=== PATIENT | female | born 1975 | race Two or more races ===

== ENCOUNTER 2016-04-28 13:25 | Emergency (ER) | payer SELFPAY ==
[2016-04-28] MEDS ORDERED: Loratadine 10 MG Tab PO ONE (14:19)
[2016-04-28] MEDS ORDERED: Ondansetron 4 MG/2 ML SDV IVPUSH ONE (14:19)
[2016-04-28] MEDS ORDERED: LORazepam 2 MG/ML MDV IVPUSH ONE (14:19)
[2016-04-28] MEDS ORDERED: Sodium Chloride 0.9% 10 ML Syringe FLUSH PRN (14:19)
[2016-04-28] MEDS ORDERED: Sodium Chloride 0.9% 1,000 ML IV SCH (14:30)
--- NOTE | 2016-04-28 14:52 | EDM.PDOC ---
ED HPI Behavioral Health - General Chief Complaint: Drug or Alcohol Abuse Stated Complaint: DETOXING FROM METH/ NAUSEA Time Seen by Provider: 04/28/16 13:51 Source of Information: Reports: Patient, RN notes reviewed - History of Present Illness INITIAL COMMENTS - FREE TEXT/NARRATIVE: 40-year-old female comes in with symptoms of anxiety and itching. She states that she is coming off of using methamphetamine. She's been using it fairly regularly since last July and off and on for the last 23 years. SHe states that she quit using meth IV about 3 weeks ago and then quit smoking meth about 3 days ago. She has not slept well the last few nights. SHe feels anxious, jittery and also has a lot of itchiness especially of arms and legs. No chest pain or difficulty breathing. No fever or chills. No abdominal pain nausea or vomiting. She denies being diabetic and denies known history for hypertension, heart disease or diabetes. No history of other known medical problems. 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 Immunologic History: Reports: HIV - Infectious Disease History Infectious Disease History: Reports: HIV-Human immunodeficiency virus - Past Surgical History GI Surgical History: Reports: Cholecystectomy Female Surgical History: Reports: Tubal ligation Other Neurological Surgeries/Procedures: degenerative disc disease L3-4 Social & Family History - Family History Family Medical History: Noncontributory - Tobacco Use Smoking Status *Q: Current Every Day Smoker Years of Tobacco use: 20 Packs/Tins Daily: 0.1 Second Hand Smoke Exposure: Yes - Caffeine Use Caffeine Use: Reports: Soda - Alcohol Use Days Per Week of Alcohol Use: 0 - Recreational Drug Use Recreational Drug Use: Yes Drug Use in Last 12 Months: Yes Recreational Drug Type: Reports: Methamphetamine Recreational Drug Use Frequency: Daily Recreational Drug Last Use: t-3 ED ROS GENERAL - Review of Systems Review Of Systems: See Below Constitutional: Denies: fever, chills, diaphoresis HEENT: Denies: Sinus problem, Throat pain Respiratory: Reports: cough. Denies: shortness of breath, sputum Cardiovascular: Reports: Palpitations. Denies: Chest pain, Lightheadedness, Syncope GI/Abdominal: Denies: Abdominal pain, Nausea, Vomiting Musculoskeletal: Denies: joint pain Skin: Reports: pruritis Neurological: Reports: dizziness (mild). Denies: headache, weakness Psychiatric: Reports: Anxiety ED EXAM, BEHAVIORAL HEALTH - Physical Exam Exam: See Below General Appearance: alert, anxious (mild) Eye Exam: bilateral eye: PERRL Throat/Mouth: Normal inspection, Normal oropharynx Head: No: facial swelling Neck: supple, full range of motion Respiratory/Chest: no respiratory distress, lungs clear, normal breath sounds Cardiovascular: regular rate, rhythm Back Exam: No: CVA tenderness (L), CVA tenderness (R) Extremities: normal inspection. No: pedal edema, leg pain Neurological: alert, no motor/sensory deficits Skin Exam: Other (she does have scattered excoriations of her upper extremities , primarily bilateral forearms.) COURSE, BEHAVIORAL HEALTH COMP - Course Vital Signs: Last Vital Signs Temp 98.5 F 04/28/16 13:45 Pulse 96 04/28/16 13:45 Resp 18 04/28/16 13:45 BP 134/84 04/28/16 13:45 Pulse Ox 97 04/28/16 13:45 Orders, Labs, Meds: Active Orders 24 hr Category Date Time Status Peripheral IV Care [RC] . DIRECTED Care 04/28/16 14:19 Active Sodium Chloride 0.9% [Normal Saline] 1,000 ml Med 04/28/16 14:30 Active IV ONETIME Sodium Chloride 0.9% [Saline Flush] Med 04/28/16 14:19 Active 10 ml FLUSH ASDIRECTED PRN Peripheral IV Insertion Adult [OM.PC] Stat Oth 04/28/16 14:18 Ordered Medication Orders Sodium Chloride (Normal Saline) 1,000 mls @ 999 mls/hr IV ONETIME ISADORA Last Admin: 04/28/16 15:07 Dose: 999 mls/hr Sodium Chloride (Saline Flush) 10 ml FLUSH ASDIRECTED PRN PRN Reason: Keep Vein Open Last Admin: 04/28/16 15:08 Dose: 10 ml Laboratory Tests 04/28/16 04/28/16 Range/Units 15:00 15:00 WBC 3.63 L (3.98-10.04) K/mm3 RBC 4.26 (3.98-5.22) M/mm3 Hgb 13.9 (11.2-15.7) gm/L Hct 40.6 (34.1-44.9) % MCV 95.3 H (79.4-94.8) fl MCH 32.6 H (25.6-32.2) pg MCHC 34.2 (32.2-35.5) g/dl RDW Std Deviation 47.2 H (36.4-46.3) fL Plt Count 269 (182-369) K/mm3 MPV 10.0 (9.4-12.3) fl Neut % (Auto) 54.7 (34.0-71.1) % Lymph % (Auto) 29.5 (19.3-51.7) % [place] % (Auto) 10.5 (4.7-12.5) % Eos % (Auto) 4.7 (0.7-5.8) Baso % (Auto) 0.6 (0.1-1.2) % Neut # 1.99 (1.56-6.13) K/mm3 Lymph # 1.07 L (1.18-3.74) K/mm3 [place] # 0.38 H (0.24-0.36) K/mm3 Eos # 0.17 (0.04-0.36) K/mm3 Baso # 0.02 (0.01-0.08) K/mm3 Sodium 140 (136-145) mEq/L Potassium 4.2 (3.5-5.1) mEq/L Chloride 105 (98-107) mEq/L Carbon Dioxide 29 (21-32) mEq/L Anion Gap 10.2 (5-15) BUN 15 (7-18) mg/dL Creatinine 0.8 (0.55-1.02) mg/dL Est Cr Clr Drug Dosing 82.43 mL/min Estimated GFR (MDRD) > 60 (>60) mL/min BUN/Creatinine Ratio 18.8 H (14-18) Glucose 108 H (74-106) mg/dL Calcium 8.4 L (8.5-10.1) mg/dL Total Bilirubin 0.2 (0.2-1.0) mg/dL AST 18 (15-37) U/L ALT 45 (14-59) U/L Alkaline Phosphatase 88 (46-116) U/L Total Protein 7.3 (6.4-8.2) g/dl Albumin 3.1 L (3.4-5.0) g/dl Globulin 4.2 gm/dL Albumin/Globulin Ratio 0.7 L (1-2) Medications Generic Name Dose Route Start Last Admin Trade Name Freq PRN Reason Stop Dose Admin Sodium Chloride 1,000 mls @ 999 mls/hr 04/28/16 14:30 04/28/16 15:07 Normal Saline IV 999 mls/hr ONETIME ISADORA Administration Sodium Chloride 10 ml 04/28/16 14:19 04/28/16 15:08 Saline Flush FLUSH 10 ml ASDIRECTED PRN Administration Keep Vein Open Discontinued Medications Generic Name Dose Route Start Last Admin Trade Name Freq PRN Reason Stop Dose Admin Loratadine 10 mg 04/28/16 14:19 04/28/16 15:08 Claritin PO 04/28/16 14:20 10 mg ONETIME ONE Administration Lorazepam 1 mg 04/28/16 14:19 04/28/16 15:07 Ativan IVPUSH 04/28/16 14:20 1 mg ONETIME ONE Administration Ondansetron HCl 4 mg 04/28/16 14:19 04/28/16 15:07 Zofran IVPUSH 04/28/16 14:20 4 mg ONETIME ONE Administration Re-Assessment/Re-Exam: labs are good. Patient does feel less anxious and less itchy after Ativan 1 mg IV, 1 L of normal saline IV and Claritin 10 mg by mouth, discharge instructions as documented Departure - Departure Time of Disposition: 16:19 Disposition: Home, Self-Care 01 Condition: fair Clinical Impression: Anxiety, Pruritus Prescriptions: LORazepam [Ativan] 1 mg PO Q8H PRN #14 tablet PRN Reason: Anxiety Referrals: Anna Marie Silva, [employer] [Primary Care Provider] - Additional Instructions: rest, drink plenty of water, Ativan 1/2 mg or 1 mg every 8-12 hours as needed for palpitations, anxiety. Do not drive when taking these medications. Followup with your regular medical provider or [facility] as needed, return to ED as needed, and also consider [facility] if needed for any addiction- type counseling services. - My Orders Last 24 Hours: My Active Orders 04/28/16 14:18 Peripheral IV Insertion Adult [OM.PC] Stat 04/28/16 14:19 Peripheral IV Care [RC] . DIRECTED Sodium Chloride 0.9% [Saline Flush] 10 ml FLUSH ASDIRECTED PRN 04/28/16 14:30 Sodium Chloride 0.9% [Normal Saline] 1,000 ml IV ONETIME - Assessment/Plan Last 24 Hours: My Active Orders 04/28/16 14:18 Peripheral IV Insertion Adult [OM.PC] Stat 04/28/16 14:19 Peripheral IV Care [RC] . DIRECTED Sodium Chloride 0.9% [Saline Flush] 10 ml FLUSH ASDIRECTED PRN 04/28/16 14:30 Sodium Chloride 0.9% [Normal Saline] 1,000 ml IV ONETIME
[2016-04-28 16:38] VITALS: BP 119/77
== END 2016-04-28 16:34 | disposition home or self-care (01) ==
LOC: JD.ED 13:25
DX: F41.9 Anxiety disorder, unspecified (principal); L29.9 Pruritus, unspecified; B20 Human immunodeficiency virus [HIV] disease; F17.210 Nicotine dependence, cigarettes, uncomplicated; Z90.49 Acquired absence of other specified parts of digestive tract; Z88.0 Allergy status to penicillin
CPT/HCPCS: 36415; 80053; 85025; 96361; 96374; 96375; 99284; A9270; J2060; J2405; J7040; J7050

== ENCOUNTER 2016-11-16 18:54 | Emergency (ER) | payer OTHER ==
[2016-11-16 19:48] VITALS: BP 106/70
[2016-11-16] MEDS ORDERED: Sodium Chloride 0.9% 10 ML Syringe FLUSH PRN (19:52)
[2016-11-16] MEDS ORDERED: Sodium Chloride 0.9% 1,000 ML IV SCH (20:00)
[2016-11-16] MEDS ORDERED: Midazolam 1 MG/ML 2 ML SDV IVPUSH ONE (21:47)
--- NOTE | 2016-11-16 22:48 | EDM.PDOC ---
ED HPI GENERAL MEDICAL PROBLEM - General Chief Complaint: Possible Sepsis Stated Complaint: poss blood infection Time Seen by Provider: 11/16/16 19:33 Source of Information: Reports: Patient, Provider History Limitations: Reports: No Limitations - History of Present Illness INITIAL COMMENTS - FREE TEXT/NARRATIVE: The patient is HIV positive since 1996. She was on ART for many years but now she is off of it. She was non compliant. She sees an infectious disease specialist in [facility]. She left there on the 15 of November to come back here. She is on probation for a drug possession charge. She is trying to get probation back home in [place] where she cane be with her doctor and with her mom. Before she came back here her doctor ran some tests and her CD4 count was 11 and she was positive for cryptococcal antigen. She had headaches and he wanted her to come to the ER for basic labs, CT of her head and an LP. She denies any symptoms currently such as headache, fever, chills, cough, chest pain, shortness of breath, abdominal pain, nausea or vomiting. She has no numbness or weakness. She is currently on bactrim and azithromycin for prophylaxis. Onset: Gradual Duration: Day(s): Improves with: Reports: None Worsens with: Reports: None Associated Symptoms: Reports: No Other Symptoms - Related Data Allergies Allergy/AdvReac Type Severity Reaction Status Date / Time Penicillins Allergy Anaphylactic Verified 11/16/16 19:25 Shock Home Meds: Home Meds ALPRAZolam [Xanax] 1 mg PO PRN 11/16/16 [History] Albuterol Sulfate [Proair Hfa] 2 puff IH PRN 11/16/16 [History] Amitriptyline [Elavil] 50 mg PO BEDTIME 11/16/16 [History] Azithromycin 2 tab PO ASDIRECTED 11/16/16 [History] Cetirizine [ZyrTEC] 10 mg PO DAILY 11/16/16 [History] Escitalopram [Lexapro] 20 mg PO DAILY 11/16/16 [History] Hydrocodone/Acetaminophen [Vicodin 5-300 mg Tablet] 1 tab PO ASDIRECTED PRN [History] Levothyroxine [Synthroid] 50 mcg PO DAILY 11/16/16 [History] Nystatin 5 ml PO QID 11/16/16 [History] Pneumococcal 13-Valent Conjug [Prevnar 13] 0.5 ml IM ASDIRECTED 11/16/16 [ History] Sulfamethoxazole/Trimethoprim [Bactrim Ds Tablet] 1 each PO 11/16/16 [History] Triamcinolone Acetonide [Triamcinolone Acetonide 0.1% Crm] TOP DAILY 11/16/16 [ History] hydrOXYzine Pamoate [Hydroxyzine Pamoate] 100 mg PO TID 11/16/16 [History] Past Medical History - Past Health History Medical/Surgical History: Denies Medical/Surgical History [employer] 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: Musculoskeletal History: Reports: Back Pain, Chronic Neurological History: Reports: Headaches, Chronic Psychiatric History: Reports: Addiction, Anxiety, Depression, Other (See Below) Other Psychiatric History: 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 Endocrine/Metabolic History: Reports: Hypothyroidism Immunologic History: Reports: HIV Dermatologic History: Reports: Other (See Below) Other Dermatologic History: 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 - Infectious Disease History Infectious Disease History: Reports: HIV-Human Immunodeficiency Virus - Past Surgical History GI Surgical History: Reports: Cholecystectomy Female Surgical History: Reports: Tubal Ligation Other Neurological Surgeries/Procedures: degenerative disc disease L3-4 Social & Family History - Family History Family Medical History: Noncontributory - Tobacco Use Smoking Status *Q: Current Every Day Smoker Years of Tobacco use: 24 Packs/Tins Daily: 1 Tobacco Use Comment: down to 1 cigarette daily Second Hand Smoke Exposure: Yes - Caffeine Use Caffeine Use: Reports: Soda - Alcohol Use Days Per Week of Alcohol Use: 0 - Recreational Drug Use Recreational Drug Use: Yes Drug Use in Last 12 Months: No Recreational Drug Type: Reports: Methamphetamine Recreational Drug Use Frequency: Not Used In Over 6 Months Recreational Drug Last Use: t-3 ED ROS GENERAL - Review of Systems Review Of Systems: See Below Constitutional: Reports: No Symptoms HEENT: Reports: No Symptoms Respiratory: Reports: No Symptoms Cardiovascular: Reports: No Symptoms Endocrine: Reports: No Symptoms GI/Abdominal: Reports: No Symptoms : Reports: No Symptoms Musculoskeletal: Reports: No Symptoms Skin: Reports: No Symptoms Neurological: Reports: Headache (Days ago but none now) ED EXAM, SEPSIS - Physical Exam Exam: See Below Exam Limited By: No Limitations General Appearance: Alert, No Apparent Distress Ears: Normal External Exam Nose: Normal Inspection Head: Atraumatic, Normocephalic Neck: Normal Inspection Respiratory/Chest: No Respiratory Distress, Lungs Clear, Normal Breath Sounds Cardiovascular: Regular Rate, Rhythm, No Edema, No Murmur GI/Abdominal Exam: Soft, Non-Tender, No Organomegaly, No Mass Back: Normal Inspection Extremities: Normal Inspection Neurological: Alert, Oriented, No Motor/Sensory Deficits ED SEPSIS PROCEDURES - Lumbar Puncture Indication: Headache Consent Obtained: Patient Position: Left Prep: Sterile Drapes, Betadine Local Anesthesia - Lidocaine (Xylocaine): 1% Plain Vertebral Interspace: L4/L5 Spinal Needle with Stylet: 20ga, 3.5 Inch (Adult) Number of Attempts: 2 (Unsuccessful) Course - Vital Signs Last Recorded V/S: Last Vital Signs Temp 97.4 F 11/16/16 19:47 Pulse 87 11/16/16 19:47 Resp 18 11/16/16 19:47 BP 106/70 11/16/16 19:47 Pulse Ox 98 11/16/16 19:47 - Orders/Labs/Meds Orders: Active Orders 24 hr Category Date Time Status Flat in Bed [RC] ASDIRECTED Care 11/16/16 21:36 Active Peripheral IV Care [RC] . DIRECTED Care 11/16/16 19:54 Active Procedure Tray at Bedside [] ASDIRECTED Care 11/16/16 21:36 Active Verify Patient Consent Obtain [RC] ASDIRECTED Care 11/16/16 21:36 Active Head wo Cont [CT] Stat Exams 11/16/16 19:55 Taken CULTURE BLOOD [BC] Stat Lab 11/16/16 20:15 Received CULTURE BLOOD [BC] Stat Lab 11/16/16 20:25 Received Blood Culture x2 Reflex Set [OM.PC] Stat Oth 11/16/16 19:52 Ordered ED Lumbar Puncture Reflex [OM.PC] Click To Edit Oth 11/16/16 21:36 Ordered Peripheral IV Insertion Adult [OM.PC] Stat Oth 11/16/16 19:52 Ordered Labs: Laboratory Tests 11/16/16 11/16/16 Range/Units 20:15 20:15 WBC 3.86 L (3.98-10.04) K/mm3 RBC 3.76 L (3.98-5.22) M/mm3 Hgb 12.3 (11.2-15.7) gm/L Hct 36.2 (34.1-44.9) % MCV 96.3 H (79.4-94.8) fl MCH 32.7 H (25.6-32.2) pg MCHC 34.0 (32.2-35.5) g/dl RDW Std Deviation 47.3 H (36.4-46.3) fL Plt Count 255 (182-369) K/mm3 MPV 10.0 (9.4-12.3) fl Neut % (Auto) 50.7 (34.0-71.1) % Lymph % (Auto) 28.8 (19.3-51.7) % [place] % (Auto) 10.1 (4.7-12.5) % Eos % (Auto) 9.6 H (0.7-5.8) Baso % (Auto) 0.5 (0.1-1.2) % Neut # (Auto) 1.96 (1.56-6.13) K/mm3 Lymph # (Auto) 1.11 L (1.18-3.74) K/mm3 [place] # (Auto) 0.39 H (0.24-0.36) K/mm3 Eos # (Auto) 0.37 H (0.04-0.36) K/mm3 Baso # (Auto) 0.02 (0.01-0.08) K/mm3 Sodium 143 (136-145) mEq/L Potassium 4.0 (3.5-5.1) mEq/L Chloride 107 (98-107) mEq/L Carbon Dioxide 29 (21-32) mEq/L Anion Gap 11.0 (5-15) BUN 21 H (7-18) mg/dL Creatinine 1.1 H (0.55-1.02) mg/dL Est Cr Clr Drug Dosing TNP Estimated GFR (MDRD) 54 (>60) mL/min BUN/Creatinine Ratio 19.1 H (14-18) Glucose 113 H (74-106) mg/dL Calcium 8.5 (8.5-10.1) mg/dL Total Bilirubin 0.3 (0.2-1.0) mg/dL AST 39 H (15-37) U/L ALT 71 H (14-59) U/L Alkaline Phosphatase 99 (46-116) U/L Total Protein 7.4 (6.4-8.2) g/dl Albumin 3.3 L (3.4-5.0) g/dl Globulin 4.1 gm/dL Albumin/Globulin Ratio 0.8 L (1-2) Meds: Medications Discontinued Medications Generic Name Dose Route Start Last Admin Trade Name Shravanq PRN Reason Stop Dose Admin Sodium Chloride 1,000 mls @ 125 mls/hr 11/16/16 20:00 11/16/16 20:39 Normal Saline IV 125 mls/hr ASDIRECTED ISADORA Administration Midazolam HCl 2 mg 11/16/16 21:47 11/16/16 21:59 Versed 1 Mg/Ml IVPUSH 11/16/16 21:48 2 mg ONETIME ONE Administration Sodium Chloride 10 ml 11/16/16 19:52 11/16/16 20:41 Saline Flush FLUSH 10 ml ASDIRECTED PRN Administration Keep Vein Open - Re-Assessments/Exams Free Text/Narrative Re-Assessment/Exam: 11/17/16 01:53 I ordered an IV saline lock, CT of her head, labs and an LP. Her CT shows nothing acute. Her WBC was low at 3.86. Her Hgb was normal at 12.3. Her platelets were normal at 255. Her creatinine was elevated at 1.1. Her AST was elevated at 3.9. Her ALT was elevated at 71. I attempted to do the LP 2 times with no success. I set her up to get an LP by our WILL CALL ORDER CLERK's tomorrow at 9am. The patient will return and we will order the suggested studies. Departure - Departure Time of Disposition: 22:50 Disposition: Home, Self-Care 01 Condition: Good Clinical Impression: HIV (human immunodeficiency virus infection), Cryptosporidiosis with HIV infection Headache Qualifiers: Headache type: unspecified Headache chronicity pattern: episodic headache Intractability: not intractable Qualified Code(s): R51 - Headache - Discharge Information Instructions: Migraine Headache Referrals: Anna Marie Silva [employer] WORKER [Primary Care Provider] - Forms: ED Department Discharge Additional Instructions: Please return to the hospital tomorrow morning at 9am. Come to the front of the hospital. Our WILL CALL ORDER CLERK will do the lumbar puncture. Please return if you are worse. - My Orders Last 24 Hours: My Active Orders 11/16/16 19:52 Blood Culture x2 Reflex Set [OM.PC] Stat Peripheral IV Insertion Adult [OM.PC] Stat 11/16/16 19:54 Peripheral IV Care [RC] . DIRECTED 11/16/16 19:55 Head wo Cont [CT] Stat 11/16/16 20:15 CULTURE BLOOD [BC] Stat 11/16/16 20:25 CULTURE BLOOD [BC] Stat 11/16/16 21:36 Flat in Bed [RC] ASDIRECTED Procedure Tray at Bedside [RC] ASDIRECTED Verify Patient Consent Obtain [RC] ASDIRECTED ED Lumbar Puncture Reflex [OM.PC] Click To Edit - Assessment/Plan Last 24 Hours: My Active Orders 11/16/16 19:52 Blood Culture x2 Reflex Set [OM.PC] Stat Peripheral IV Insertion Adult [OM.PC] Stat 11/16/16 19:54 Peripheral IV Care [RC] . DIRECTED 11/16/16 19:55 Head wo Cont [CT] Stat 11/16/16 20:15 CULTURE BLOOD [BC] Stat 11/16/16 20:25 CULTURE BLOOD [BC] Stat 11/16/16 21:36 Flat in Bed [RC] ASDIRECTED Procedure Tray at Bedside [RC] ASDIRECTED Verify Patient Consent Obtain [RC] ASDIRECTED ED Lumbar Puncture Reflex [OM.PC] Click To Edit
--- NOTE | 2016-11-17 07:32 | CT ---
Head CT Technique: Multiple axial sections through the brain were obtained. Intravenous contrast was not utilized. Comparison: No prior intracranial imaging. Findings: Ventricles along with basal cisterns and sulci over the convexities are within normal limits for the patient's age. No abnormal parenchymal densities are seen. No evidence of intracranial hemorrhage. No midline shift or mass effect is seen. Bone window settings were reviewed which show no acute calvarial abnormality. Visualized sinuses are clear. Impression: 1. Nothing acute is identified on noncontrast head CT exam. Diagnostic code #1 Agree with preliminary report issued by [facility] ([facility] preliminary report dictated on 11/16/16, 10:17 PM Central Time)
== END 2016-11-16 22:55 | disposition home or self-care (01) ==
LOC: JD.ED 18:54
DX: R51 Headache (principal); A07.2 Cryptosporidiosis; B20 Human immunodeficiency virus [HIV] disease; F17.210 Nicotine dependence, cigarettes, uncomplicated; Z88.0 Allergy status to penicillin; Z79.899 Other long term (current) drug therapy
CPT/HCPCS: 36415; 62272; 70450; 80053; 85025; 87040; 96361; 96374; 99285; J2250; J7040; J7050; 62270; 99284-25

== ENCOUNTER 2016-11-25 00:48 | Emergency (ER) | payer OTHER ==
[2016-11-25] MEDS ORDERED: Sodium Chloride 0.9% 10 ML Syringe FLUSH PRN (01:39)
[2016-11-25] MEDS ORDERED: Sodium Chloride 0.9% 1,000 ML IV SCH (01:45)
--- NOTE | 2016-11-25 02:49 | EDM.PDOC ---
ED HPI GENERAL MEDICAL PROBLEM - General Chief Complaint: Respiratory Problem Stated Complaint: HEADACHE NAUSEA FEVER CHEST PAIN Time Seen by Provider: 11/25/16 01:19 Source of Information: Reports: Patient History Limitations: Reports: No Limitations - History of Present Illness INITIAL COMMENTS - FREE TEXT/NARRATIVE: The patient has HIV. Her last CD 4 count was 11. That was done a couple weeks ago in [facility]. She was also positive for cryptococcal antigen. Her infectious disease specialist lives there. That is where the patient is from. Her doctor before he left put her on some bactrim and azithromycin. She is not on antiretroviral therapy at this time. She did not tolerate it and was non compliant. The patient had to come back to [place]. She is on probation from a drug charge. Her doctor called her and told her to come to the ER last week and get a CT of her head, labs and an LP. Her CT was normal. Her labs look good. I attempted an LP a couple times and I was unsuccessful. I scheduled the patient to come back the next day to have our SAFETY BELT INSTALLER attempt the LP. She did not show up. She contacted her doctor and he started her on diflucan 800mg daily. She has been on that for a few days. She has been on bactrim, azithromycin and nystatin for a couple of weeks. For the past couple of days she has developed a headache, low back pain, chils, photophobia, right sided chest pain, shortness of breath with wheezing. She also has dizziness and decreased appetite. She has no abdominal pain, nausea or vomiting. Onset: Gradual Duration: Day(s): Location: Reports: Head Quality: Reports: Ache Severity: Moderate Improves with: Reports: None Worsens with: Reports: None Associated Symptoms: Reports: Chest Pain, Fever/Chills, Headaches, Shortness of Breath, Weakness. Denies: Confusion, Cough, Nausea/Vomiting Treatments MOTHERS HELPER: Reports: Other (see below) headache Pain Score (Numeric/FACES): 10 lower back Pain Score (Numeric/FACES): 10 right chest/shoulder Pain Score (Numeric/FACES): 5 - Related Data Allergies Allergy/AdvReac Type Severity Reaction Status Date / Time Penicillins Allergy Anaphylactic Verified 11/25/16 01:10 Shock Home Meds: Home Meds ALPRAZolam [Xanax] 0.5 mg PO DAILY PRN 09/25/17 [History] Albuterol Sulfate [Proair Hfa] 2 puff IH ASDIRECTED PRN 11/16/16 [History] Amitriptyline [Elavil] 50 mg PO BEDTIME 11/16/16 [History] Azithromycin 2 tab PO ASDIRECTED 11/16/16 [History] Cetirizine [ZyrTEC] 10 mg PO DAILY 11/16/16 [History] Escitalopram [Lexapro] 20 mg PO DAILY 11/16/16 [History] Hydrocodone/Acetaminophen [Vicodin 5-300 mg Tablet] 1 tab PO ASDIRECTED PRN [History] Levothyroxine [Synthroid] 50 mcg PO DAILY 11/16/16 [History] Nystatin 5 ml PO QID 11/16/16 [History] Sulfamethoxazole/Trimethoprim [Bactrim Ds Tablet] 1 each PO DAILY 11/16/16 [ History] Triamcinolone Acetonide [Triamcinolone Acetonide 0.1% Crm] 1 dose TOP DAILY [History] hydrOXYzine Pamoate [Hydroxyzine Pamoate] 100 mg PO TID PRN 11/16/16 [History] Cyanocobalamin (Vitamin B-12) [Vitamin B-12] 1,000 mcg PO DAILY 11/25/16 [ History] Fluconazole [Diflucan] 800 mg PO DAILY 11/25/16 [History] LORazepam 1 mg PO Q8H PRN 11/25/16 [History] Permethrin 60 gm TP ASDIRECTED PRN 11/25/16 [History] diphenhydrAMINE HCl [Diphenhist] 25 mg PO ASDIRECTED PRN 11/25/16 [History] Past Medical History - Past Health History Medical/Surgical History: Denies Medical/Surgical History Respiratory History: Reports: Bronchitis, Recurrent, Pneumonia, Recurrent, Other (See Below) Other Respiratory History: PCP x 2 with HIV Gastrointestinal History: Reports: Hepatitis, Other (See Below) Other Gastrointestinal History: Hepatitis A as a child [employer]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: Musculoskeletal History: Reports: Back Pain, Chronic Neurological History: Reports: Headaches, Chronic Psychiatric History: Reports: Addiction, Anxiety, Depression, Other (See Below) Other Psychiatric History: hx meth abuse Endocrine/Metabolic History: Reports: Hypothyroidism, Obesity/BMI 30+ Hematologic History: Reports: B12 Deficiency, Other (See Below) Other Hematologic History: HIV Immunologic History: Reports: AIDS, HIV, Other (See Below) Other Immunologic History: CD4 count, PCP x 2 Dermatologic History: Reports: Other (See Below) Other Dermatologic History: 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 - Infectious Disease History Infectious Disease History: Reports: HIV-Human Immunodeficiency Virus - Past Surgical History GI Surgical History: Reports: Cholecystectomy Female Surgical History: Reports: Tubal Ligation Other Neurological Surgeries/Procedures: degenerative disc disease L3-4 Social & Family History - Family History Family Medical History: Noncontributory - Tobacco Use Smoking Status *Q: Current Every Day Smoker Years of Tobacco use: 23 Packs/Tins Daily: 0.1 Second Hand Smoke Exposure: Yes - Caffeine Use Caffeine Use: Reports: Soda - Alcohol Use Days Per Week of Alcohol Use: 0 - Recreational Drug Use Recreational Drug Use: Yes Drug Use in Last 12 Months: No Recreational Drug Type: Reports: Other (see below) Other Recreational Drug Type: hx meth addiction Recreational Drug Use Frequency: Not Used In Over 6 Months Recreational Drug Last Use: t-3 ED ROS GENERAL - Review of Systems Review Of Systems: See Below Constitutional: Reports: Chills, Weakness HEENT: Reports: No Symptoms Respiratory: Reports: Shortness of Breath, Wheezing, Cough Cardiovascular: Reports: Chest Pain Endocrine: Reports: Fatigue GI/Abdominal: Reports: Anorexia. Denies: Abdominal Pain, Nausea, Vomiting : Reports: No Symptoms Musculoskeletal: Reports: Back Pain (Low) Skin: Reports: No Symptoms Neurological: Reports: Dizziness, Headache ED EXAM, GENERAL - Physical Exam Exam: See Below Exam Limited By: No Limitations General Appearance: Alert, No Apparent Distress Ears: Normal External Exam Nose: Normal Inspection Head: Atraumatic, Normocephalic Neck: Normal Inspection Respiratory/Chest: No Respiratory Distress, Lungs Clear, Normal Breath Sounds Cardiovascular: Regular Rate, Rhythm, No Edema, No Murmur GI/Abdominal: Soft, Non-Tender, No Organomegaly, No Mass Back Exam: Normal Inspection Extremities: Normal Inspection Neurological: Alert, Oriented, No Motor/Sensory Deficits EKG INTERPRETATION EKG Date: 11/25/16 Time: 01:50 Rhythm: NSR Rate (Beats/Min): 90 [place]: Normal P-Wave: Present QRS: Normal ST-T: Normal QT: Normal Course - Vital Signs Last Recorded V/S: Last Vital Signs Temp 96.9 F 11/25/16 00:55 Pulse 100 11/25/16 00:55 Resp 16 11/25/16 00:55 BP 118/77 11/25/16 00:55 Pulse Ox 99 11/25/16 00:55 - Orders/Labs/Meds Orders: Active Orders 24 hr Category Date Time Status Cardiac Monitoring [RC] . DIRECTED Care 11/25/16 01:39 Active EKG Documentation Completion [RC] STAT Care 11/25/16 01:40 Active Oxygen Therapy [RC] PRN Care 11/25/16 01:39 Active Peripheral IV Care [RC] . DIRECTED Care 11/25/16 01:40 Active Chest 1V Frontal [CR] Stat Exams 11/25/16 01:40 Taken Head wo Cont [CT] Stat Exams 11/25/16 01:40 Taken CULTURE BLOOD [BC] Stat Lab 11/25/16 02:15 Received CULTURE BLOOD [BC] Stat Lab 11/25/16 02:25 Received UA W/MICROSCOPIC [URIN] Stat Lab 11/25/16 01:39 Uncollected Levofloxacin/Dextrose 5%-Water [Levaquin in D5W 750 MG/ Med 11/25/16 06:04 Active 150 ML] 750 mg Premix Bag 1 bag IV ONETIME Sodium Chloride 0.9% [Normal Saline] 1,000 ml Med 11/25/16 01:45 Active IV ASDIRECTED Sodium Chloride 0.9% [Saline Flush] Med 11/25/16 01:39 Active 10 ml FLUSH ASDIRECTED PRN Blood Culture x2 Reflex Set [OM.PC] Stat Oth 11/25/16 01:41 Ordered Peripheral IV Insertion Adult [OM.PC] Stat Oth 11/25/16 01:39 Ordered Medication Orders Sodium Chloride (Normal Saline) 1,000 mls @ 125 mls/hr IV ASDIRECTED ISADORA Last Admin: 11/25/16 02:18 Dose: 125 mls/hr Levofloxacin/Dextrose 750 mg/ (Premix) 150 mls @ 100 mls/hr IV ONETIME ONE Stop: 11/25/16 07:33 Sodium Chloride (Saline Flush) 10 ml FLUSH ASDIRECTED PRN PRN Reason: Keep Vein Open Last Admin: 11/25/16 02:18 Dose: 10 ml Labs: Laboratory Tests 11/25/16 11/25/16 Range/Units 01:40 01:40 WBC 4.54 (3.98-10.04) K/mm3 RBC 3.74 L (3.98-5.22) M/mm3 Hgb 12.0 (11.2-15.7) gm/L Hct 35.5 (34.1-44.9) % MCV 94.9 H (79.4-94.8) fl MCH 32.1 (25.6-32.2) pg MCHC 33.8 (32.2-35.5) g/dl RDW Std Deviation 46.2 (36.4-46.3) fL Plt Count 244 (182-369) K/mm3 MPV 9.8 (9.4-12.3) fl Neut % (Auto) 64.0 (34.0-71.1) % Lymph % (Auto) 15.4 L (19.3-51.7) % Eddy % (Auto) 12.1 (4.7-12.5) % Eos % (Auto) 8.1 H (0.7-5.8) Baso % (Auto) 0.2 (0.1-1.2) % Neut # (Auto) 2.90 (1.56-6.13) K/mm3 Lymph # (Auto) 0.70 L (1.18-3.74) K/mm3 Eddy # (Auto) 0.55 H (0.24-0.36) K/mm3 Eos # (Auto) 0.37 H (0.04-0.36) K/mm3 Baso # (Auto) 0.01 (0.01-0.08) K/mm3 Sodium 138 (136-145) mEq/L Potassium 4.4 (3.5-5.1) mEq/L Chloride 102 (98-107) mEq/L Carbon Dioxide 28 (21-32) mEq/L Anion Gap 12.4 (5-15) BUN 20 H (7-18) mg/dL Creatinine 0.9 (0.55-1.02) mg/dL Est Cr Clr Drug Dosing 73.27 mL/min Estimated GFR (MDRD) > 60 (>60) mL/min BUN/Creatinine Ratio 22.2 H (14-18) Glucose 86 (74-106) mg/dL Calcium 10.0 (8.5-10.1) mg/dL Total Bilirubin 0.3 (0.2-1.0) mg/dL AST 76 H (15-37) U/L ALT 98 H (14-59) U/L Alkaline Phosphatase 98 (46-116) U/L Troponin I < 0.017 (0.00-0.056) ng/mL C-Reactive Protein 3.5 H* (<1.0) mg/dL Total Protein 8.0 (6.4-8.2) g/dl Albumin 3.7 (3.4-5.0) g/dl Globulin 4.3 gm/dL Albumin/Globulin Ratio 0.9 L (1-2) Meds: Medications Generic Name Dose Route Start Last Admin Trade Name Freq PRN Reason Stop Dose Admin Sodium Chloride 1,000 mls @ 125 mls/hr 11/25/16 01:45 11/25/16 02:18 Normal Saline IV 125 mls/hr ASDIRECTED ISADORA Administration Levofloxacin/Dextrose 750 mg/ 150 mls @ 100 mls/hr 11/25/16 06:04 Premix IV 11/25/16 07:33 ONETIME ONE Sodium Chloride 10 ml 11/25/16 01:39 11/25/16 02:18 Saline Flush FLUSH 10 ml ASDIRECTED PRN Administration Keep Vein Open Discontinued Medications Generic Name Dose Route Start Last Admin Trade Name Shravanq PRN Reason Stop Dose Admin Ibuprofen 600 mg 11/25/16 03:40 11/25/16 03:48 Motrin PO 11/25/16 03:41 600 mg ONETIME ONE Administration Ondansetron HCl 4 mg 11/25/16 03:41 11/25/16 03:48 Zofran IVPUSH 11/25/16 03:42 4 mg ONETIME ONE Administration - Re-Assessments/Exams Free Text/Narrative Re-Assessment/Exam: 11/25/16 02:58 I ordered an IV NS 1L bolus, CXR, EKG, head CT, labs, blood cultures and a UA. Her head CT was negative. Her CXR looks good. Her EKG shows a NSR with no acute changes. Her CBC looks good. Her AST was elevated at 76. Her ALT was elevated at 98. Her troponin was negative. Her CRP was elevated at 3.5. 11/25/16 06:10 Her ID doctor from [place] wanted her admitted. We do not have specialty care here. I called [facility] in [place] and talked with Dr Yang the hospitalist director of extension work and he accepted the patient. I will start levaquin 750mg IV. She was not able to urinate for us at this time. She has no dysuria though. Departure - Departure Time of Disposition: 06:15 Disposition: DC/Tfer to Acute Hospital 02 Condition: Fair Clinical Impression: HIV (human immunodeficiency virus infection), Cryptosporidiosis with HIV infection Chest pain Qualifiers: Chest pain type: unspecified Qualified Code(s): R07.9 - Chest pain, unspecified Headache Qualifiers: Headache type: unspecified Headache chronicity pattern: episodic headache Intractability: not intractable Qualified Code(s): R51 - Headache - Discharge Information Referrals: Anna Marie Silva CAD INTERN [Primary Care Provider] - Forms: ED Department Discharge - My Orders Last 24 Hours: My Active Orders 11/25/16 01:39 Cardiac Monitoring [RC] . DIRECTED Oxygen Therapy [RC] PRN UA W/MICROSCOPIC [URIN] Stat Sodium Chloride 0.9% [Saline Flush] 10 ml FLUSH ASDIRECTED PRN Peripheral IV Insertion Adult [OM.PC] Stat 11/25/16 01:40 EKG Documentation Completion [RC] STAT Peripheral IV Care [RC] . DIRECTED Chest 1V Frontal [CR] Stat Head wo Cont [CT] Stat 11/25/16 01:41 Blood Culture x2 Reflex Set [OM.PC] Stat 11/25/16 01:45 Sodium Chloride 0.9% [Normal Saline] 1,000 ml IV ASDIRECTED 11/25/16 02:15 CULTURE BLOOD [BC] Stat 11/25/16 02:25 CULTURE BLOOD [BC] Stat 11/25/16 06:04 Levofloxacin/Dextrose 5%-Water [Levaquin in D5W 750 MG/150 ML] 750 mg Premix Bag 1 bag IV ONETIME - Assessment/Plan Last 24 Hours: My Active Orders 11/25/16 01:39 Cardiac Monitoring [RC] . DIRECTED Oxygen Therapy [RC] PRN UA W/MICROSCOPIC [URIN] Stat Sodium Chloride 0.9% [Saline Flush] 10 ml FLUSH ASDIRECTED PRN Peripheral IV Insertion Adult [OM.PC] Stat 11/25/16 01:40 EKG Documentation Completion [RC] STAT Peripheral IV Care [RC] . DIRECTED Chest 1V Frontal [CR] Stat Head wo Cont [CT] Stat 11/25/16 01:41 Blood Culture x2 Reflex Set [OM.PC] Stat 11/25/16 01:45 Sodium Chloride 0.9% [Normal Saline] 1,000 ml IV ASDIRECTED 11/25/16 02:15 CULTURE BLOOD [BC] Stat 11/25/16 02:25 CULTURE BLOOD [BC] Stat 11/25/16 06:04 Levofloxacin/Dextrose 5%-Water [Levaquin in D5W 750 MG/150 ML] 750 mg Premix Bag 1 bag IV ONETIME
[2016-11-25] MEDS ORDERED: Ibuprofen 600 MG Tab PO ONE (03:40)
[2016-11-25] MEDS ORDERED: Ondansetron 4 MG/2 ML SDV IVPUSH ONE (03:41)
[2016-11-25] MEDS ORDERED: Levofloxacin/Dextrose 5%-Water 750 MG in Premix Bag 1 BAG IV ONE (06:04)
[2016-11-25 06:19] VITALS: BP 102/63
--- NOTE | 2016-11-25 08:12 | CT ---
Head CT Technique: Multiple axial sections through the brain were obtained. Intravenous contrast was not utilized. Comparison: Prior head CT study of 11/16/16. Findings: Ventricles along the basal cisterns and sulci over the convexities appear within normal limits for the patient's age. No abnormal parenchymal densities are seen. No evidence of intracranial hemorrhage. No midline shift or mass effect is seen. Bone window settings were reviewed which show mild mucosal thickening within the ethmoid sinuses. No acute calvarial abnormality is identified. Impression: 1. Mild mucosal thickening within the ethmoid sinuses. This is likely chronic. 2. Noncontrast head CT study is otherwise unremarkable. Diagnostic code #2 I agree with preliminary report issued by [facility] ([facility] report finalized on 11/25/16, 3:27 AM Central Time)
--- NOTE | 2016-11-25 08:12 | CR ---
Chest: Frontal view of the chest was obtained. Comparison: Previous chest x-ray of 07/23/14. Heart size and mediastinum are normal. Lungs are clear. Bony structures are grossly intact. Impression: 1. Nothing acute is identified on frontal chest x-ray. Diagnostic code #1
== END 2016-11-25 07:10 ==
LOC: JD.ED 00:48
DX: R51 Headache (principal); R07.9 Chest pain, unspecified; B20 Human immunodeficiency virus [HIV] disease; A07.2 Cryptosporidiosis; Z87.01 Personal history of pneumonia (recurrent); F32.9 Major depressive disorder, single episode, unspecified; E03.9 Hypothyroidism, unspecified; E66.9 Obesity, unspecified; F17.210 Nicotine dependence, cigarettes, uncomplicated; Z98.51 Tubal ligation status; Z79.899 Other long term (current) drug therapy; Z88.0 Allergy status to penicillin; Z68.33 Body mass index [BMI] 33.0-33.9, adult
CPT/HCPCS: 36415; 70450; 71010; 80053; 84484; 85025; 86140; 87040; 93005; 96361; 96365; 96375; 99285; A9270; J1956; J2405; J7040; J7050; 93010

== ENCOUNTER 2017-01-04 17:41 | Emergency (ER) | payer OTHER ==
[2017-01-04 18:13] VITALS: BP 128/72
[2017-01-04] MEDS ORDERED: Doxycycline 100 MG Cap PO ONE (19:15)
--- NOTE | 2017-01-04 19:16 | EDM.PDOC ---
ED HPI GENERAL MEDICAL PROBLEM - General Chief Complaint: Skin Complaint Stated Complaint: RASH ON BODY Time Seen by Provider: 01/04/17 18:56 Source of Information: Reports: Patient, RN Notes Reviewed - History of Present Illness INITIAL COMMENTS - FREE TEXT/NARRATIVE: 41-year-old female comes in with complaint of worsening lesions arms leg strong that are also very itchy. She's had this in the past. This started becoming worse again several weeks ago and now much worse the last 2 or 3 days. She does have history of HIV. He does have history of prior meth and heroin abuse but states she has not been using drugs anytime recently. She is on nothing new regarding medications. Is on a lot of medications, see list for details. Of note she currently is taking Bactrim once a day, azithromycin 2 tabs weekly in addition to her other current medications. There've been no hives. No chest pain or difficulty breathing. Generalized Pain Score (Numeric/FACES): 10 - Related Data Allergies Allergy/AdvReac Type Severity Reaction Status Date / Time Penicillins Allergy Anaphylactic Verified 01/04/17 17:51 Shock Home Meds: Home Meds ALPRAZolam [Xanax] 0.5 mg PO DAILY PRN 11/16/16 [History] Albuterol Sulfate [Proair Hfa] 2 puff IH ASDIRECTED PRN 11/16/16 [History] Amitriptyline [Elavil] 50 mg PO BEDTIME 11/16/16 [History] Azithromycin 2 tab PO ASDIRECTED 11/16/16 [History] Cetirizine [ZyrTEC] 10 mg PO DAILY 11/16/16 [History] Escitalopram [Lexapro] 20 mg PO DAILY 11/16/16 [History] Hydrocodone/Acetaminophen [Vicodin 5-300 mg Tablet] 1 tab PO ASDIRECTED PRN [History] Levothyroxine [Synthroid] 50 mcg PO DAILY 11/16/16 [History] Nystatin 5 ml PO QID 11/16/16 [History] Sulfamethoxazole/Trimethoprim [Bactrim Ds Tablet] 1 each PO DAILY 11/16/16 [ History] Triamcinolone Acetonide [Triamcinolone Acetonide 0.1% Crm] 1 dose TOP DAILY [History] hydrOXYzine Pamoate [Hydroxyzine Pamoate] 100 mg PO TID PRN 11/16/16 [History] Cyanocobalamin (Vitamin B-12) [Vitamin B-12] 1,000 mcg PO DAILY 11/25/16 [ History] Fluconazole [Diflucan] 800 mg PO DAILY 11/25/16 [History] Permethrin 60 gm TP ASDIRECTED PRN 11/25/16 [History] diphenhydrAMINE HCl [Diphenhist] 25 mg PO ASDIRECTED PRN 11/25/16 [History] Dolutegravir Sodium [Tivicay] 50 mg PO DAILY 01/04/17 [History] Doxycycline [Vibramycin] 100 mg PO BID #14 cap 01/04/17 [Rx] Emtricitabine/Tenofov Alafenam [Descovy 200-25 mg Tablet] 1 tab PO DAILY [History] Ondansetron [Ondansetron ODT] 4 mg PO Q6H PRN 01/04/17 [History] Past Medical History - Past Health History Medical/Surgical History: Denies Medical/Surgical History Respiratory History: Reports: Bronchitis, Recurrent, Pneumonia, Recurrent, Other (See Below) Other Respiratory History: PCP x 2 with HIV Gastrointestinal History: Reports: Hepatitis, Other (See Below) Other Gastrointestinal History: Hepatitis A as a child 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: Musculoskeletal History: Reports: Back Pain, Chronic Neurological History: Reports: Headaches, Chronic Psychiatric History: Reports: Addiction, Anxiety, Depression, Other (See Below) Other Psychiatric History: hx meth abuse Endocrine/Metabolic History: Reports: Hypothyroidism, Obesity/BMI 30+ Hematologic History: Reports: B12 Deficiency, Other (See Below) Other Hematologic History: HIV Immunologic History: Reports: AIDS, HIV, Other (See Below) Other Immunologic History: CD4 count, PCP x 2 Dermatologic History: Reports: Other (See Below) Other Dermatologic History: 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 - Infectious Disease History Infectious Disease History: Reports: HIV-Human Immunodeficiency Virus - Past Surgical History GI Surgical History: Reports: Cholecystectomy Female Surgical History: Reports: Tubal Ligation Other Neurological Surgeries/Procedures: degenerative disc disease L3-4 Social & Family History - Family History Family Medical History: Noncontributory - Tobacco Use Smoking Status *Q: Current Every Day Smoker Years of Tobacco use: 20 Packs/Tins Daily: 0.5 Second Hand Smoke Exposure: Yes - Caffeine Use Caffeine Use: Reports: Soda - Alcohol Use Days Per Week of Alcohol Use: 0 - Recreational Drug Use Recreational Drug Use: Yes Drug Use in Last 12 Months: No Recreational Drug Type: Reports: Methamphetamine Other Recreational Drug Type: hx meth addiction Recreational Drug Use Frequency: Monthly Recreational Drug Last Use: t-3 ED ROS GENERAL - Review of Systems Review Of Systems: See Below Constitutional: Denies: Fever, Chills HEENT: Denies: Throat Pain Respiratory: Denies: Shortness of Breath Cardiovascular: Denies: Chest Pain GI/Abdominal: Denies: Abdominal Pain, Nausea, Vomiting Musculoskeletal: Reports: No Symptoms Skin: Reports: Other (Scattered lesions entire body but especially bothersome trunk arms and legs) Neurological: Denies: Numbness, Tingling, Weakness Psychiatric: Reports: Anxiety ED EXAM, SKIN/RASH Exam: See Below Exam Limited By: Other (Patient noted to be very anxious, fidgety) General Appearance: Anxious Eye Exam: Bilateral Eye: PERRL Throat/Mouth: Normal Inspection Head: No: Facial Swelling Neck: Supple, Full Range of Motion Respiratory/Chest: No Respiratory Distress, Lungs Clear, Normal Breath Sounds Cardiovascular: Tachycardia Extremities: Normal Range of Motion. No: Pedal Edema, Leg Pain Neurological: Alert, Oriented, No Motor/Sensory Deficits Skin: Warm, Dry, Normal Color, Other (Patient does have a lot of excoriated lesions neck, trunk arms and legs. There is no other generalized rash or uticaria, of note there are no lesions on her hands or in the webspace of her fingers) Course - Vital Signs Last Recorded V/S: Last Vital Signs Temp 97.9 F 01/04/17 18:05 Pulse 112 H 01/04/17 18:05 Resp 20 01/04/17 18:05 BP 128/72 01/04/17 18:05 Pulse Ox 96 01/04/17 18:05 - Orders/Labs/Meds Meds: Medications Discontinued Medications Generic Name Dose Route Start Last Admin Trade Name Freq PRN Reason Stop Dose Admin Doxycycline Hyclate 100 mg 01/04/17 19:15 01/04/17 19:24 Vibramycin PO 01/04/17 19:16 100 mg ONETIME ONE Administration Departure - Departure Time of Disposition: 19:19 Disposition: Home, Self-Care 01 Condition: Fair Clinical Impression: Neurodermatitis - Discharge Information Prescriptions: Doxycycline [Vibramycin] 100 mg PO BID #14 cap Instructions: Rash, [id number] Referrals: Anna Marie Silva BILLET WORKER [Primary Care Provider] - Forms: ED Department Discharge Additional Instructions: doxycycline 100 mg twice daily for 1 week, take aprazalam 0.5 mg twice daily for now rather than just as needed, see your medical provider Wednesday as planned.
== END 2017-01-04 19:30 | disposition home or self-care (01) ==
LOC: JD.ED 17:41
DX: L28.0 Lichen simplex chronicus (principal); F17.210 Nicotine dependence, cigarettes, uncomplicated; Z88.0 Allergy status to penicillin; Z79.899 Other long term (current) drug therapy
CPT/HCPCS: 99283; A9270

== ENCOUNTER 2017-02-14 22:01 | Emergency (ER) | payer OTHER ==
[2017-02-14 22:11] VITALS: BP 140/83
[2017-02-14] MEDS ORDERED: diphenhydrAMINE 50 MG Cap PO ONE (22:46)
[2017-02-14] MEDS ORDERED: Famotidine 20 MG Tab PO ONE (22:46)
[2017-02-14] MEDS ORDERED: predniSONE 20 MG Tab PO ONE (22:46)
--- NOTE | 2017-02-14 23:14 | EDM.PDOC ---
ED HPI GENERAL MEDICAL PROBLEM - General Chief Complaint: General Stated Complaint: SKIN FEELS HOT Time Seen by Provider: 02/14/17 22:32 Source of Information: Reports: Patient History Limitations: Reports: No Limitations - History of Present Illness INITIAL COMMENTS - FREE TEXT/NARRATIVE: The patient has a history of HIV and she is on multiple meds. Today she developed burning generalized rash. This started today. She has some mild shortness of breath. She does not itch. In the past she has had trouble with that. She thinks she has some swelling in her throat. There has been no new meds added. She is very careful of lotions, detergents and soaps due to the trouble she has with itching. Onset: Gradual Duration: Hour(s): Location: Reports: Generalized Quality: Reports: Burning Severity: Moderate Improves with: Reports: None Worsens with: Reports: None Associated Symptoms: Reports: Shortness of Breath. Denies: Confusion, Chest Pain, Cough, Fever/Chills, Headaches, Nausea/Vomiting - Related Data Allergies Allergy/AdvReac Type Severity Reaction Status Date / Time Penicillins Allergy Anaphylactic Verified 01/04/17 17:51 Shock Home Meds: Home Meds ALPRAZolam [Xanax] 0.5 mg PO DAILY PRN 11/16/16 [History] Albuterol Sulfate [Proair Hfa] 2 puff IH ASDIRECTED PRN 11/16/16 [History] Amitriptyline [Elavil] 50 mg PO BEDTIME 11/16/16 [History] Azithromycin 2 tab PO ASDIRECTED 11/16/16 [History] Cetirizine [ZyrTEC] 10 mg PO DAILY 11/16/16 [History] Escitalopram [Lexapro] 20 mg PO DAILY 11/16/16 [History] Hydrocodone/Acetaminophen [Vicodin 5-300 mg Tablet] 1 tab PO ASDIRECTED PRN [History] Levothyroxine [Synthroid] 50 mcg PO DAILY 11/16/16 [History] Sulfamethoxazole/Trimethoprim [Bactrim Ds Tablet] 1 each PO DAILY 11/16/16 [ History] Triamcinolone Acetonide [Triamcinolone Acetonide 0.1% Crm] 1 dose TOP DAILY [History] hydrOXYzine Pamoate [Hydroxyzine Pamoate] 100 mg PO TID PRN 11/16/16 [History] Cyanocobalamin (Vitamin B-12) [Vitamin B-12] 1,000 mcg PO DAILY 11/25/16 [ History] Fluconazole [Diflucan] 400 mg PO DAILY 11/25/16 [History] Permethrin 60 gm TP ASDIRECTED PRN 11/25/16 [History] diphenhydrAMINE HCl [Diphenhist] 25 mg PO ASDIRECTED PRN 11/25/16 [History] Dolutegravir Sodium [Tivicay] 50 mg PO DAILY 01/04/17 [History] Ondansetron [Ondansetron ODT] 4 mg PO Q6H PRN 01/04/17 [History] Meloxicam [Mobic] 7.5 mg PO BID 02/14/17 [History] Past Medical History - Past Health History Medical/Surgical History: Denies Medical/Surgical History Respiratory History: Reports: Bronchitis, Recurrent, Pneumonia, Recurrent, Other (See Below) Other Respiratory History: PCP x 2 with HIV Gastrointestinal History: Reports: Hepatitis, Other (See Below) Other Gastrointestinal History: Hepatitis A as a child 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: Musculoskeletal History: Reports: Back Pain, Chronic Neurological History: Reports: Headaches, Chronic Psychiatric History: Reports: Addiction, Anxiety, Depression, Other (See Below) Other Psychiatric History: hx meth abuse Endocrine/Metabolic History: Reports: Hypothyroidism, Obesity/BMI 30+ Hematologic History: Reports: B12 Deficiency, Other (See Below) Other Hematologic History: HIV Immunologic History: Reports: AIDS, HIV, Other (See Below) Other Immunologic History: CD4 count, PCP x 2 Dermatologic History: Reports: Other (See Below) Other Dermatologic History: 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 - Infectious Disease History Infectious Disease History: Reports: HIV-Human Immunodeficiency Virus - Past Surgical History GI Surgical History: Reports: Cholecystectomy Female Surgical History: Reports: Tubal Ligation Other Neurological Surgeries/Procedures: degenerative disc disease L3-4 Social & Family History - Family History Family Medical History: Noncontributory - Tobacco Use Smoking Status *Q: Current Every Day Smoker Years of Tobacco use: 20 Packs/Tins Daily: 0.3 Second Hand Smoke Exposure: Yes - Caffeine Use Caffeine Use: Reports: Soda - Alcohol Use Days Per Week of Alcohol Use: 0 - Recreational Drug Use Recreational Drug Use: Yes Drug Use in Last 12 Months: No Recreational Drug Type: Reports: Methamphetamine Other Recreational Drug Type: used meth last time 1 yr ago Recreational Drug Use Frequency: Monthly Recreational Drug Last Use: t-3 ED ROS GENERAL - Review of Systems Review Of Systems: See Below Constitutional: Reports: No Symptoms HEENT: Reports: Other (Swelling in her throat) Respiratory: Reports: Shortness of Breath Cardiovascular: Reports: No Symptoms Endocrine: Reports: No Symptoms GI/Abdominal: Reports: No Symptoms : Reports: No Symptoms Musculoskeletal: Reports: No Symptoms Skin: Reports: Other (Generalized rash) ED EXAM, GENERAL - Physical Exam Exam: See Below Exam Limited By: No Limitations General Appearance: Alert, No Apparent Distress Ears: Normal External Exam Nose: Normal Inspection Throat/Mouth: Normal Inspection Head: Atraumatic, Normocephalic Neck: Normal Inspection Respiratory/Chest: No Respiratory Distress, Lungs Clear, Normal Breath Sounds Cardiovascular: Regular Rate, Rhythm, No Edema, No Murmur GI/Abdominal: Soft, Non-Tender, No Organomegaly, No Mass Back Exam: Normal Inspection Extremities: Normal Inspection Skin Exam: Rash (Macular rash with some urticaria) Course - Vital Signs Last Recorded V/S: Last Vital Signs Temp 98.0 F 02/14/17 22:10 Pulse 102 H 02/14/17 22:10 Resp 20 02/14/17 22:10 BP 140/83 02/14/17 22:10 Pulse Ox 99 02/14/17 22:10 - Orders/Labs/Meds Meds: Medications Discontinued Medications Generic Name Dose Route Start Last Admin Trade Name Doug PRN Reason Stop Dose Admin Diphenhydramine HCl 50 mg 02/14/17 22:46 02/14/17 22:54 Benadryl PO 02/14/17 22:47 50 mg ONETIME ONE Administration Famotidine 20 mg 02/14/17 22:46 02/14/17 22:54 Pepcid PO 02/14/17 22:47 20 mg ONETIME ONE Administration Prednisone 20 mg 02/14/17 22:46 02/14/17 22:54 Prednisone PO 02/14/17 22:47 20 mg ONETIME ONE Administration - Re-Assessments/Exams Free Text/Narrative Re-Assessment/Exam: 02/14/17 23:14 I ordered prednisone 20mg PO, pepcid 20mg PO and benadryl 50mg PO. 02/14/17 23:48 She feels a little better. I will discharge her with some prednisone. Departure - Departure Time of Disposition: 23:50 Disposition: Home, Self-Care 01 Condition: Good Clinical Impression: Allergic reaction Qualifiers: Encounter type: initial encounter Qualified Code(s): T78.40XA - Allergy, unspecified, initial encounter - Discharge Information Referrals: Anna Marie Silva PULP REFINER OPERATOR [Primary Care Provider] - Forms: ED Department Discharge Additional Instructions: Take your medication as prescribed. Take the prednisone daily for 5 days. Take benadryl for any rash. Take pepcid daily for 5 days. Please return if you are worse.
== END 2017-02-15 00:03 | disposition home or self-care (01) ==
LOC: JD.ED 22:01
DX: T78.40XA Allergy, unspecified, initial encounter (principal); B20 Human immunodeficiency virus [HIV] disease; F17.210 Nicotine dependence, cigarettes, uncomplicated; Z88.0 Allergy status to penicillin; Z79.899 Other long term (current) drug therapy
CPT/HCPCS: 99283; A9270

== ENCOUNTER 2017-02-23 13:24 | Emergency (ER) | payer OTHER ==
[2017-02-23 13:50] VITALS: BP 122/83
--- NOTE | 2017-02-23 14:00 | EDM.PDOC ---
ED HPI GENERAL MEDICAL PROBLEM - General Chief Complaint: Respiratory Problem Stated Complaint: HEAD PAIN Time Seen by Provider: 02/23/17 14:10 Source of Information: Reports: Patient History Limitations: Reports: No Limitations - History of Present Illness INITIAL COMMENTS - FREE TEXT/NARRATIVE: Patient is a HIV patient presents to the ED with a productive occasional cough of white phlegm, runny nose for 3 days accompanied with mild headache with intermittent hot and cold flashes. No documented fever noted. She's also had intermittent ear discomfort and also sore throat. Notes generalized body aches with a chronic low back pain she takes hydrocodone 7.5 mg/325 normally every day to which she ran out of recently. She was restarted on her HIV medications approximately 2 months ago. Her infectious disease doctor is from [facility] Dr. Alejandro and states last CD4 count was showing that the medications were working. She does not know what the CD4 count was. She has been eating and drinking okay. She is currently taking Bactrim and fluconazole. States she was seen and Natan for meningitis approximately 2 months ago. States the headache is mild in nature. Has no recent sick exposures. Denies any cp, sob, n/ v, abdominal pain, dysuria, rashes, or any additional complaints. head, back Pain Score (Numeric/FACES): 5 - Related Data Allergies Allergy/AdvReac Type Severity Reaction Status Date / Time Penicillins Allergy Anaphylactic Verified 02/24/17 02:21 Shock Home Meds: Home Meds ALPRAZolam [Xanax] 0.5 mg PO DAILY 11/16/16 [History] Albuterol Sulfate [Proair Hfa] 2 puff IH ASDIRECTED PRN 11/16/16 [History] Amitriptyline [Elavil] 50 mg PO BEDTIME 11/16/16 [History] Azithromycin 2 tab PO ASDIRECTED 11/16/16 [History] Cetirizine [ZyrTEC] 10 mg PO DAILY 11/16/16 [History] Escitalopram [Lexapro] 20 mg PO DAILY 11/16/16 [History] Hydrocodone/Acetaminophen [Vicodin 5-300 mg Tablet] 1 tab PO ASDIRECTED PRN [History] Levothyroxine [Synthroid] 50 mcg PO DAILY 11/16/16 [History] Sulfamethoxazole/Trimethoprim [Bactrim Ds Tablet] 1 each PO DAILY 11/16/16 [ History] Triamcinolone Acetonide [Triamcinolone Acetonide 0.1% Crm] 1 dose TOP DAILY [History] hydrOXYzine Pamoate [Hydroxyzine Pamoate] 100 mg PO TID PRN 11/16/16 [History] Cyanocobalamin (Vitamin B-12) [Vitamin B-12] 1,000 mcg PO DAILY 11/25/16 [ History] Fluconazole [Diflucan] 400 mg PO DAILY 11/25/16 [History] diphenhydrAMINE HCl [Diphenhist] 25 mg PO ASDIRECTED PRN 11/25/16 [History] Dolutegravir Sodium [Tivicay] 50 mg PO DAILY 01/04/17 [History] Ondansetron [Ondansetron ODT] 4 mg PO Q6H PRN 01/04/17 [History] Meloxicam [Mobic] 7.5 mg PO BID 02/14/17 [History] Emtricitabine/Tenofov Alafenam [Descovy 200-25 mg Tablet] 1 each PO DAILY [History] Loperamide HCl [Anti-Diarrheal] 2 mg PO ASDIRECTED PRN 02/23/17 [History] Past Medical History - Past Health History Medical/Surgical History: Denies Medical/Surgical History Respiratory History: Reports: Bronchitis, Recurrent, Pneumonia, Recurrent, Other (See Below) Other Respiratory History: PCP x 2 with HIV Gastrointestinal History: Reports: Hepatitis, Other (See Below) Other Gastrointestinal History: Hepatitis A as a child 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: Musculoskeletal History: Reports: Back Pain, Chronic Neurological History: Reports: Headaches, Chronic Psychiatric History: Reports: Addiction, Anxiety, Depression, Other (See Below) Other Psychiatric History: hx meth abuse Endocrine/Metabolic History: Reports: Hypothyroidism, Obesity/BMI 30+ Hematologic History: Reports: B12 Deficiency, Other (See Below) Other Hematologic History: HIV Immunologic History: Reports: AIDS, HIV, Other (See Below) Other Immunologic History: CD4 count, PCP x 2 Dermatologic History: Reports: Other (See Below) Other Dermatologic History: 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 - Infectious Disease History Infectious Disease History: Reports: HIV-Human Immunodeficiency Virus - Past Surgical History GI Surgical History: Reports: Cholecystectomy Female Surgical History: Reports: Tubal Ligation Other Neurological Surgeries/Procedures: degenerative disc disease L3-4 Social & Family History - Family History Family Medical History: Noncontributory - Tobacco Use Smoking Status *Q: Current Every Day Smoker Years of Tobacco use: 20 Packs/Tins Daily: 0.3 Second Hand Smoke Exposure: Yes - Caffeine Use Caffeine Use: Reports: Soda - Alcohol Use Days Per Week of Alcohol Use: 0 - Recreational Drug Use Recreational Drug Use: Yes Drug Use in Last 12 Months: No Recreational Drug Type: Reports: Methamphetamine Other Recreational Drug Type: used meth last time 1 yr ago Recreational Drug Use Frequency: Monthly Recreational Drug Last Use: t-3 ED ROS GENERAL - Review of Systems Review Of Systems: ROS reveals no pertinent complaints other than HPI. ED EXAM, GENERAL - Physical Exam Exam: See Below Exam Limited By: No Limitations General Appearance: Alert, WD/WN, No Apparent Distress Ears: Normal External Exam, Normal Canal, Hearing Grossly Normal, Normal TMs Nose: Normal Inspection, Nasal Swelling, Nasal Drainage, Clear Rhinorrhea Throat/Mouth: Normal Inspection, Normal Voice, No Airway Compromise, Other ( mild redness to the posterior pharynx) Neck: Normal Inspection, Supple, Non-Tender, Full Range of Motion. No: Lymphadenopathy (L), Lymphadenopathy (R) Respiratory/Chest: No Respiratory Distress, Lungs Clear, Normal Breath Sounds, No Accessory Muscle Use, Chest Non-Tender Cardiovascular: Normal Peripheral Pulses, Regular Rate, Rhythm, Systolic Murmur Peripheral Pulses: 3+: Popliteal (L), Popliteal (R), 4+: Radial (L), Radial (R) GI/Abdominal: Normal Bowel Sounds, Soft, Non-Tender, No Organomegaly, No Distention Back Exam: Normal Inspection. No: CVA Tenderness (L), CVA Tenderness (R) Extremities: Normal Inspection, Non-Tender, No Pedal Edema, Normal Capillary Refill Neurological: Alert, Oriented, CN II-XII Intact, Normal Cognition, No Motor/ Sensory Deficits Psychiatric: Normal Affect, Normal Mood Skin Exam: Warm, Dry, Intact, Normal Color Course - Vital Signs Last Recorded V/S: Last Vital Signs Temp 97.5 F 02/23/17 13:47 Pulse 98 02/23/17 13:47 Resp 18 02/23/17 13:47 BP 122/83 02/23/17 13:47 Pulse Ox 97 02/23/17 13:47 - Orders/Labs/Meds Orders: Active Orders 24 hr Category Date Time Status Peripheral IV Care [RC] . DIRECTED Care 02/23/17 14:32 Active CULTURE BLOOD [] Stat Lab 02/23/17 14:55 Received CULTURE BLOOD [] Stat Lab 02/23/17 15:08 Received CULTURE STREP A CONFIRMATION [] Stat Lab 02/23/17 15:26 Results STREP SCRN A RAPID W CULT CONF [] Stat Lab 02/23/17 15:26 Results Blood Culture x2 Reflex Set [OM.PC] Stat Oth 02/23/17 14:32 Ordered Peripheral IV Insertion Adult [OM.PC] Stat Oth 02/23/17 14:32 Ordered Labs: Laboratory Tests 02/23/17 02/23/17 02/23/17 Range/Units 14:55 14:55 14:55 WBC 7.20 (3.98-10.04) K/mm3 RBC 4.02 (3.98-5.22) M/mm3 Hgb 13.1 (11.2-15.7) gm/L Hct 38.7 (34.1-44.9) % MCV 96.3 H (79.4-94.8) fl MCH 32.6 H (25.6-32.2) pg MCHC 33.9 (32.2-35.5) g/dl RDW Std Deviation 46.9 H (36.4-46.3) fL Plt Count 315 (182-369) K/mm3 MPV 9.2 L (9.4-12.3) fl Neut % (Auto) 67.1 (34.0-71.1) % Lymph % (Auto) 19.4 (19.3-51.7) % Pope % (Auto) 8.1 (4.7-12.5) % Eos % (Auto) 4.9 (0.7-5.8) Baso % (Auto) 0.4 (0.1-1.2) % Neut # (Auto) 4.83 (1.56-6.13) K/mm3 Lymph # (Auto) 1.40 (1.18-3.74) K/mm3 Pope # (Auto) 0.58 H (0.24-0.36) K/mm3 Eos # (Auto) 0.35 (0.04-0.36) K/mm3 Baso # (Auto) 0.03 (0.01-0.08) K/mm3 Sodium 137 (136-145) mEq/L Potassium 3.7 (3.5-5.1) mEq/L Chloride 103 (98-107) mEq/L Carbon Dioxide 25 (21-32) mEq/L Anion Gap 12.7 (5-15) BUN 11 (7-18) mg/dL Creatinine 1.0 (0.55-1.02) mg/dL Est Cr Clr Drug Dosing 65.27 mL/min Estimated GFR (MDRD) > 60 (>60) mL/min BUN/Creatinine Ratio 11.0 L (14-18) Glucose 122 H (74-106) mg/dL Calcium 8.3 L (8.5-10.1) mg/dL Total Bilirubin 0.3 (0.2-1.0) mg/dL AST 27 (15-37) U/L ALT 42 (14-59) U/L Alkaline Phosphatase 83 (46-116) U/L C-Reactive Protein 1.8 H* (<1.0) mg/dL Total Protein 7.6 (6.4-8.2) g/dl Albumin 3.1 L (3.4-5.0) g/dl Globulin 4.5 gm/dL Albumin/Globulin Ratio 0.7 L (1-2) HCG, Qual Negative (NEGATIVE) Urine Color (Yellow) Urine Appearance (Clear) Urine pH (5.0-8.0) Ur Specific [place] (1.005-1.030) Urine Protein (Negative) Urine Glucose (UA) (Negative) Urine Ketones (Negative) Urine Occult Blood (Negative) Urine Nitrite (Negative) Urine Bilirubin (Negative) Urine Urobilinogen (0.2-1.0) Ur Leukocyte Esterase (Negative) Urine RBC (0-5) /hpf Urine WBC (0-5) /hpf Ur Epithelial Cells (0-5) /hpf Urine Bacteria (FEW) /hpf Urine Mucus (FEW) /hpf Urine Opiates Screen (NEGATIVE) Ur Buprenorphine Scrn (NEGATIVE) Ur Oxycodone Screen (NEGATIVE) Urine Methadone Screen (NEGATIVE) Ur Propoxyphene Screen (NEGATIVE) Ur Barbiturates Screen (NEGATIVE) Ur Tricyclics Screen (NEGATIVE) Ur Phencyclidine Scrn (NEGATIVE) Ur Amphetamine Screen (NEGATIVE) U Methamphetamines Scrn (NEGATIVE) U Benzodiazepines Scrn (NEGATIVE) U Cocaine Metab Screen (NEGATIVE) U Marijuana (THC) Screen (NEGATIVE) 02/23/17 02/23/17 Range/Units 17:15 17:15 WBC (3.98-10.04) K/mm3 RBC (3.98-5.22) M/mm3 Hgb (11.2-15.7) gm/L Hct (34.1-44.9) % MCV (79.4-94.8) fl MCH (25.6-32.2) pg MCHC (32.2-35.5) g/dl RDW Std Deviation (36.4-46.3) fL Plt Count (182-369) K/mm3 MPV (9.4-12.3) fl Neut % (Auto) (34.0-71.1) % Lymph % (Auto) (19.3-51.7) % Pope % (Auto) (4.7-12.5) % Eos % (Auto) (0.7-5.8) Baso % (Auto) (0.1-1.2) % Neut # (Auto) (1.56-6.13) K/mm3 Lymph # (Auto) (1.18-3.74) K/mm3 Pope # (Auto) (0.24-0.36) K/mm3 Eos # (Auto) (0.04-0.36) K/mm3 Baso # (Auto) (0.01-0.08) K/mm3 Sodium (136-145) mEq/L Potassium (3.5-5.1) mEq/L Chloride (98-107) mEq/L Carbon Dioxide (21-32) mEq/L Anion Gap (5-15) BUN (7-18) mg/dL Creatinine (0.55-1.02) mg/dL Est Cr Clr Drug Dosing mL/min Estimated GFR (MDRD) (>60) mL/min BUN/Creatinine Ratio (14-18) Glucose (74-106) mg/dL Calcium (8.5-10.1) mg/dL Total Bilirubin (0.2-1.0) mg/dL AST (15-37) U/L ALT (14-59) U/L Alkaline Phosphatase (46-116) U/L C-Reactive Protein (<1.0) mg/dL Total Protein (6.4-8.2) g/dl Albumin (3.4-5.0) g/dl Globulin gm/dL Albumin/Globulin Ratio (1-2) HCG, Qual (NEGATIVE) Urine Color Yellow (Yellow) Urine Appearance Slt cloudy H (Clear) Urine pH 6.0 (5.0-8.0) Ur Specific [place] 1.025 (1.005-1.030) Urine Protein Trace H (Negative) Urine Glucose (UA) Negative (Negative) Urine Ketones Negative (Negative) Urine Occult Blood 3+ H (Negative) Urine Nitrite Negative (Negative) Urine Bilirubin Negative (Negative) Urine Urobilinogen 0.2 (0.2-1.0) Ur Leukocyte Esterase Negative (Negative) Urine RBC 0-5 (0-5) /hpf Urine WBC 0-5 (0-5) /hpf Ur Epithelial Cells 0-5 (0-5) /hpf Urine Bacteria Not seen (FEW) /hpf Urine Mucus Not seen (FEW) /hpf Urine Opiates Screen Presumptive positive H (NEGATIVE) Ur Buprenorphine Scrn Negative (NEGATIVE) Ur Oxycodone Screen Negative (NEGATIVE) Urine Methadone Screen Negative (NEGATIVE) Ur Propoxyphene Screen Negative (NEGATIVE) Ur Barbiturates Screen Negative (NEGATIVE) Ur Tricyclics Screen Presumptive positive H (NEGATIVE) Ur Phencyclidine Scrn Negative (NEGATIVE) Ur Amphetamine Screen Presumptive positive H (NEGATIVE) U Methamphetamines Scrn Presumptive positive H (NEGATIVE) U Benzodiazepines Scrn Presumptive positive H (NEGATIVE) U Cocaine Metab Screen Negative (NEGATIVE) U Marijuana (THC) Screen Negative (NEGATIVE) Meds: Medications Discontinued Medications Generic Name Dose Route Start Last Admin Trade Name Freq PRN Reason Stop Dose Admin Hydromorphone HCl 0.5 mg 02/23/17 17:31 02/23/17 17:39 Dilaudid IVPUSH 02/23/17 17:32 0.5 mg ONETIME ONE Administration Sodium Chloride 500 mls @ 500 mls/hr 02/23/17 14:33 02/23/17 15:20 Normal Saline IV 02/23/17 15:32 500 mls/hr .BOLUS ONE Administration Lorazepam 1 mg 02/23/17 14:34 02/23/17 15:22 Ativan IVPUSH 02/23/17 14:35 1 mg ONETIME ONE Administration Sodium Chloride 10 ml 02/23/17 14:32 02/23/17 15:15 Saline Flush FLUSH 10 ml ASDIRECTED PRN Administration Keep Vein Open - Re-Assessments/Exams Free Text/Narrative Re-Assessment/Exam: IV established with normal saline 500 mL per hour. Ordered Ativan 1 mg IVP. Initial labs and studies include blood cultures 2, CBC, chem 14, CRP, hCG, influenza screen, strep screen, UA, chest x-ray two-view, and urine drug tox. 02/23/17 14:57 CXR did not reveal any acute findings. Unchanged from previous CXR Nov 2016. 02/23/17 16:29 Influenza and strep screen negative. Labs reviewed: White blood cell count 7.20, hemoglobin 13.1, electrolytes within normal limits, creatinine 1.0, CRP 1.8, hCG negative. Awaiting UA results. Final interpretation chest x-ray nothing acute is identified on two-view chest x -ray. 02/23/17 17:49 UA negative for infection. Urine drug tox positive for opiates, tricyclics, amphetamines, methamphetamines, and benzodiazepines. Reassessment, patient sitting up in bed eating and drinking pop. She does have a slight headache that is mild in nature. She requests refill on her [place]'s. I advised her we cannot do this in the ER. She will need to see her primary care provider Levi Silva for further pain management. Suspect etiology current complaints is viral and will have to run its course. I've advised that blood cultures were obtained and if they grow out anything she will be notified. Discharge instructions as documented. Due to history of fungal infection. Fungal Blood Culture Obtained. Departure - Departure Time of Disposition: 17:55 Disposition: Home, Self-Care 01 Condition: Good Clinical Impression: Viral upper respiratory tract infection with cough - Discharge Information Instructions: Upper Respiratory Infection, Adult, [id number] Referrals: Anna Marie Silva MANAGING DIRECTOR [Primary Care Provider] - Forms: ED Department Discharge Additional Instructions: As discussed etiology of current complaint viral upper expiratory infection. This will have to run its course over next few days. Treatment is symptomatic care. Push the fluids. Ensure adequate rest. Eat a balanced diet. Follow-up with primary care provider into this week and/or first part of next week for reevaluation. Blood cultures have been obtained if positive you will be notified. Return to the ED if you develop any new or worsening symptoms. No driving this evening since receiving a sedative medication while in the ED. - My Orders Last 24 Hours: My Active Orders 02/23/17 14:32 Peripheral IV Care [RC] . DIRECTED Blood Culture x2 Reflex Set [OM.PC] Stat Peripheral IV Insertion Adult [OM.PC] Stat 02/23/17 14:55 CULTURE BLOOD [BC] Stat 02/23/17 15:08 CULTURE BLOOD [BC] Stat 02/23/17 15:26 CULTURE STREP A CONFIRMATION [RM] Stat STREP SCRN A RAPID W CULT CONF [RM] Stat - Assessment/Plan Last 24 Hours: My Active Orders 02/23/17 14:32 Peripheral IV Care [RC] . DIRECTED Blood Culture x2 Reflex Set [OM.PC] Stat Peripheral IV Insertion Adult [OM.PC] Stat 02/23/17 14:55 CULTURE BLOOD [BC] Stat 02/23/17 15:08 CULTURE BLOOD [BC] Stat 02/23/17 15:26 CULTURE STREP A CONFIRMATION [RM] Stat STREP SCRN A RAPID W CULT CONF [RM] Stat
[2017-02-23] MEDS ORDERED: Sodium Chloride 0.9% 10 ML Syringe FLUSH PRN (14:32)
[2017-02-23] MEDS ORDERED: Sodium Chloride 0.9% 500 ML IV ONE (14:33)
[2017-02-23] MEDS ORDERED: LORazepam 2 MG/ML SDV IVPUSH ONE (14:34)
--- NOTE | 2017-02-23 15:41 | CR ---
Chest: Two views of the chest were obtained. Comparison: Prior chest x-ray of 11/25/16. Heart size and mediastinum are normal. Lungs are clear. Mild endplate spurring is seen within the thoracic spine. Surgical clips are seen from prior cholecystectomy. Impression: 1. Incidental findings. Nothing acute is identified on two-view chest x-ray. Diagnostic code #2
[2017-02-23] MEDS ORDERED: HYDROmorphone 0.5 MG/0.5 ML Syringe IVPUSH ONE (17:31)
== END 2017-02-23 18:15 | disposition home or self-care (01) ==
LOC: JD.ED 13:24
DX: J06.9 Acute upper respiratory infection, unspecified (principal); F17.210 Nicotine dependence, cigarettes, uncomplicated; Z88.0 Allergy status to penicillin; Z79.899 Other long term (current) drug therapy
CPT/HCPCS: 36415; 71046; 80053; 80306; 81001; 84703; 85025; 86140; 87040; 87081; 87430; 87804; 96361; 96374; 96375; 99284; J1170; J2060; J7040; J7050

== ENCOUNTER 2017-02-24 02:11 | Emergency (ER) | payer OTHER ==
[2017-02-24 02:33] VITALS: BP 131/73
[2017-02-24] MEDS ORDERED: Sodium Chloride 0.9% 1,000 ML IV ONE (02:52)
[2017-02-24] MEDS ORDERED: Ondansetron 4 MG/2 ML SDV IVPUSH ONE (02:52)
--- NOTE | 2017-02-24 03:10 | EDM.PDOC ---
ED HPI GENERAL MEDICAL PROBLEM - General Chief Complaint: Gastrointestinal Problem Stated Complaint: VOMMITING WAS HERE EARLIER Time Seen by Provider: 02/24/17 02:22 Source of Information: Reports: Patient, Old Records, Other (Friend) History Limitations: Reports: No Limitations - History of Present Illness INITIAL COMMENTS - FREE TEXT/NARRATIVE: Medical records indicate that the patient was seen in this ED yesterday afternoon, 02/23/2017, for complaint of occasional cough productive of whitish phlegm, rhinorrhea for 3 days, and mild headache, with intermittent hot and cold flashes. She had complained of intermittent ear discomfort and a sore throat. She has a history of HIV and chronic low back pain. She states that she is prescribed her HIV medications, including Bactrim and fluconazole, as well as [place], by Dr. Alejandro, and Infectious Disease specialist from [facility] in [place]. She states that she lives here in [place], but travels to [place] monthly to get her medications. The patient was found be hemodynamically stable and afebrile. Workup in the ED included a CBC, CMP, CRP, 2 sets of blood cultures, including a fungal culture, urinalysis, urine , urine drug screen, influenza screen, rapid strep test, and two-view chest radiograph. Her entire workup was unremarkable, although her urine drug screen was positive for methamphetamine/amphetamine, in addition to opiates, tricyclics, and benzodiazepines. The patient stated at the time that her last use of methamphetamine was about a year ago. The patient is prescribed amitriptyline and Xanax. She was given 0.5 mg Dilaudid IVP, 1 mg Ativan IVP, and 500 mL normal saline before being discharged home. The patient requested a refill of her [place], which was declined. The patient now returns to the ED complaining of nausea and emesis ever since she left the ED yesterday afternoon, and continuation of her 3 day headache. She also states that she is scared that her HIV disease is going to get worse, even though she states that she is compliant with her HIV medications. No diarrhea. She states that she has felt hot and sweaty, but has not had a documented fever. She acknowledges that she ran out of her [place] about 2 weeks ago, that she last saw Dr. Alejandro in December. She states that she will be switching to an Infectious Disease physician in [place]. No recent spoiled food. No antibodies other than her usual Bactrim and fluconazole. No recent travel. No similarly ill contacts. The patient states that she has a prescription for Zofran, but did not take any today. The patient denies prior similar symptoms, although her medical record indicates that she has chronic headaches. When asked about recreational drug use, the patient states that she has used methamphetamine in the past, but maintains that her last use was about a year ago. When confronted with her positive urine drug screen from yesterday, she stated that she did not know how that would be positive, but did not seem upset with the news. The patient's PCP is Leelee Silva. Head Pain Score (Numeric/FACES): 10 - Related Data Allergies Allergy/AdvReac Type Severity Reaction Status Date / Time Penicillins Allergy Anaphylactic Verified 02/24/17 02:21 Shock Home Meds: Home Meds ALPRAZolam [Xanax] 0.5 mg PO DAILY 11/16/16 [History] Albuterol Sulfate [Proair Hfa] 2 puff IH ASDIRECTED PRN 11/16/16 [History] Amitriptyline [Elavil] 50 mg PO BEDTIME 11/16/16 [History] Azithromycin 2 tab PO ASDIRECTED 11/16/16 [History] Cetirizine [ZyrTEC] 10 mg PO DAILY 11/16/16 [History] Escitalopram [Lexapro] 20 mg PO DAILY 11/16/16 [History] Hydrocodone/Acetaminophen [Vicodin 5-300 mg Tablet] 1 tab PO ASDIRECTED PRN [History] Levothyroxine [Synthroid] 50 mcg PO DAILY 11/16/16 [History] Sulfamethoxazole/Trimethoprim [Bactrim Ds Tablet] 1 each PO DAILY 11/16/16 [ History] Triamcinolone Acetonide [Triamcinolone Acetonide 0.1% Crm] 1 dose TOP DAILY [History] hydrOXYzine Pamoate [Hydroxyzine Pamoate] 100 mg PO TID PRN 11/16/16 [History] Cyanocobalamin (Vitamin B-12) [Vitamin B-12] 1,000 mcg PO DAILY 11/25/16 [ History] Fluconazole [Diflucan] 400 mg PO DAILY 11/25/16 [History] diphenhydrAMINE HCl [Diphenhist] 25 mg PO ASDIRECTED PRN 11/25/16 [History] Dolutegravir Sodium [Tivicay] 50 mg PO DAILY 01/04/17 [History] Ondansetron [Ondansetron ODT] 4 mg PO Q6H PRN 01/04/17 [History] Meloxicam [Mobic] 7.5 mg PO BID 02/14/17 [History] Emtricitabine/Tenofov Alafenam [Descovy 200-25 mg Tablet] 1 each PO DAILY [History] Loperamide HCl [Anti-Diarrheal] 2 mg PO ASDIRECTED PRN 02/23/17 [History] Past Medical History Respiratory History: Reports: Other (See Below) (Hx PCP) 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: Musculoskeletal History: Reports: Back Pain, Chronic Neurological History: Reports: Headaches, Chronic Psychiatric History: Reports: Addiction (methamphetamine), Anxiety, Depression Endocrine/Metabolic History: Reports: Hypothyroidism, Obesity/BMI 30+ Hematologic History: Reports: B12 Deficiency Dermatologic History: Reports: Other (See Below) (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) - Infectious Disease History Infectious Disease History: Reports: Hepatitis A (as a child), HIV-Human Immunodeficiency Virus - Past Surgical History GI Surgical History: Reports: Cholecystectomy Female Surgical History: Reports: Tubal Ligation Social & Family History - Family History Family Medical History: Noncontributory - Tobacco Use Smoking Status *Q: Current Every Day Smoker Years of Tobacco use: 20 Packs/Tins Daily: 0.3 Second Hand Smoke Exposure: Yes - Caffeine Use Caffeine Use: Reports: Soda - Alcohol Use Days Per Week of Alcohol Use: 0 - Recreational Drug Use Recreational Drug Use: Yes Drug Use in Last 12 Months: Yes Recreational Drug Type: Reports: Methamphetamine Other Recreational Drug Type: used meth last time 1 yr ago Recreational Drug Use Frequency: Monthly Recreational Drug Last Use: t-3 ED ROS GENERAL - Review of Systems Review Of Systems: ROS reveals no pertinent complaints other than HPI. ED EXAM, GENERAL - Physical Exam Exam: See Below Exam Limited By: No Limitations General Appearance: Alert, WD/WN, Anxious, Moderate Distress (Vomiting) Eye Exam: Bilateral Eye: Normal Inspection Ears: Normal External Exam, Hearing Grossly Normal Nose: Normal Inspection, No Blood Throat/Mouth: Normal Inspection, Normal Lips, Normal Voice, No Airway Compromise Head: Atraumatic, Normocephalic Neck: Normal Inspection, Full Range of Motion Respiratory/Chest: No Respiratory Distress, Lungs Clear, Normal Breath Sounds, No Accessory Muscle Use Cardiovascular: Normal Peripheral Pulses, Regular Rate, Rhythm, No Gallop, No JVD, No Murmur, No Rub Peripheral Pulses: 4+: Radial (L), Radial (R) GI/Abdominal: Normal Bowel Sounds, Soft, No Organomegaly, No Distention, No Abnormal Bruit, No Mass, Tender (Mild, generalized), Other (Obese) (Female) Exam: Deferred Rectal (Female) Exam: Deferred Back Exam: Normal Inspection, Full Range of Motion, NT Extremities: Normal Inspection, Normal Range of Motion, No Pedal Edema, Normal Capillary Refill Neurological: Alert, Oriented, Normal Cognition, No Motor/Sensory Deficits Psychiatric: Normal Affect, Anxious Skin Exam: Warm, Dry, Intact, Normal Color, No Rash Course - Vital Signs Last Recorded V/S: Last Vital Signs Temp 35.8 C 02/24/17 02:25 Pulse 103 H 02/24/17 02:25 Resp 16 02/24/17 02:25 BP 131/73 02/24/17 02:25 Pulse Ox 100 02/24/17 02:25 - Orders/Labs/Meds Orders: Active Orders 24 hr Category Date Time Status Head wo Cont [CT] Stat Exams 02/24/17 02:50 Taken Meds: Medications Discontinued Medications Generic Name Dose Route Start Last Admin Trade Name Freq PRN Reason Stop Dose Admin Sodium Chloride 1,000 mls @ 999 mls/hr 02/24/17 02:52 02/24/17 03:05 Normal Saline IV 02/24/17 03:52 999 mls/hr ONETIME ONE Administration Ondansetron HCl 4 mg 02/24/17 02:52 02/24/17 03:04 Zofran IVPUSH 02/24/17 02:53 4 mg ONETIME ONE Administration - Re-Assessments/Exams Free Text/Narrative Re-Assessment/Exam: 02/24/17 05:00 CT of the head without contrast is read by [facility] as: Normal head/brain CT. No change since prior study dated 11/25/2016 02/24/17 05:05 CT results discussed with the patient and her friend. The patient has been sleeping and feels much better. I'm recommending that she take her Zofran as needed. I'm recommending that she eat a bland diet for the next few days, and stay well hydrated. I am recommending that she notify Ms. Silva of her ER visit. Departure - Departure Time of Disposition: 05:05 Disposition: Home, Self-Care 01 Condition: Good Clinical Impression: Nausea & vomiting Headache Qualifiers: Headache type: unspecified Headache chronicity pattern: episodic headache Intractability: not intractable Qualified Code(s): R51 - Headache - Discharge Information Referrals: Anna Marie Silva, RAIL CAR WELDER [Primary Care Provider] - Forms: ED Department Discharge Additional Instructions: You were seen in the emergency room for nausea, vomiting, and headache. Workup in the ER included a CT scan of your head, which returned as normal. Because you just had an extensive workup performed yesterday, which were all unremarkable, these tests were not repeated. We recommend you eat a bland diet over the next few days. Stay well hydrated. If you are nausea returns, take your Zofran as prescribed. We recommend you notify the office of your PCP, Leelee Silva, of your ER visits. If any other problems, please do not hesitate to return to the ER. - My Orders Last 24 Hours: My Active Orders 02/24/17 02:50 Head wo Cont [CT] Stat - Assessment/Plan Last 24 Hours: My Active Orders 02/24/17 02:50 Head wo Cont [CT] Stat
--- NOTE | 2017-02-24 09:14 | CT ---
Head CT Technique: Multiple axial sections through the brain were obtained. Intravenous contrast was not utilized. Comparison: Prior head CT study of 11/25/16. Findings: Ventricles along with basal cisterns and sulci over the convexities are within normal limits for the patient's age. No abnormal parenchymal densities are seen. No evidence of intracranial hemorrhage. No midline shift or mass effect is seen. Bone window settings were reviewed which show no acute calvarial abnormality. Inferior bowing identified within the medial orbital wall compatible with old blowout fracture. This appears chronic. Mild mucosal thickening is seen within the ethmoid sinuses. Impression: 1. Incidental findings. Nothing acute is identified on noncontrast head CT study. Diagnostic code #2 I agree with preliminary report issued by [facility] ([facility] report finalized on 02/24/17, 5:48 AM Central Time)
== END 2017-02-24 05:17 | disposition home or self-care (01) ==
LOC: JD.ED 02:11
DX: R11.2 Nausea with vomiting, unspecified (principal); R51 Headache; F17.210 Nicotine dependence, cigarettes, uncomplicated; Z79.899 Other long term (current) drug therapy; Z88.0 Allergy status to penicillin
CPT/HCPCS: 70450; 96361; 96374; 99284; J2405; J7040

== ENCOUNTER 2020-12-08 18:40 | Emergency (ER) | payer MEDICAID ==
[2020-12-08 19:11] VITALS: BP 100/52; PULSE 110
[2020-12-08] MEDS ORDERED: Ketorolac 15 MG/ML SDV IM ONE (19:24)
[2020-12-08] MEDS ORDERED: Methocarbamol 500 MG Tab PO ONE (19:24)
[2020-12-08] MEDS ORDERED: Ondansetron 4 MG Tab.DIS PO ONE (19:24)
--- NOTE | 2020-12-08 19:30 | EDM.PDOC ---
ED HPI GENERAL MEDICAL PROBLEM - General Chief Complaint: Back Pain or Injury Stated Complaint: BACK PAIN/SHINGLES Time Seen by Provider: 12/08/20 19:15 Source of Information: Reports: Patient, Old Records History Limitations: Reports: No Limitations - History of Present Illness INITIAL COMMENTS - FREE TEXT/NARRATIVE: Patient is a 44-year-old female presenting to the emergency room with a chief complaint of low back pain. Patient has a past medical history of HIV currently on V[place] but has recently been incarcerated. She states she was incarcerated for 3 months and got out on Wednesday afternoon. Patient states she has been able to take all of her medications but ran out on the day that she got out. Patient states she deals with chronic low back pain for many years. She often takes [place] as a prescription to help with her low back pain. Patient denies any features that are different. Seems to be worse with bending over and improved with staying still. Patient denies any bowel bladder incontinence or saddle paresthesias. No fevers noted. Patient has only taken [id number] anti- inflammatory medication with little relief. 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 Lower Back Pain Score (Numeric/FACES): 8 Right Anterior Frontal Head Pain Score (Numeric/FACES): 2 - Related Data Allergies Allergy/AdvReac Type Severity Reaction Status Date / Time Penicillins Allergy Anaphylactic Verified 05/18/17 17:20 Shock Home Meds: Home Meds ALPRAZolam [Xanax] 0.5 mg PO DAILY 11/16/16 [History] Albuterol Sulfate [Proair Hfa] 2 puff IH ASDIRECTED PRN 11/16/16 [History] Amitriptyline [Elavil] 50 mg PO BEDTIME 11/16/16 [History] Azithromycin 2 tab PO ASDIRECTED 11/16/16 [History] Cetirizine [ZyrTEC] 10 mg PO DAILY 11/16/16 [History] Escitalopram [Lexapro] 20 mg PO DAILY 11/16/16 [History] Hydrocodone/Acetaminophen [Vicodin 5-300 mg Tablet] 1 tab PO ASDIRECTED PRN 11/16/16 [History] Levothyroxine [Synthroid] 50 mcg PO DAILY 11/16/16 [History] Sulfamethoxazole/Trimethoprim [Bactrim Ds Tablet] 1 each PO DAILY 11/16/16 [History] Triamcinolone Acetonide [Triamcinolone Acetonide 0.1% Crm] 1 dose TOP DAILY 11/16/16 [History] hydrOXYzine pamoate [Hydroxyzine Pamoate] 100 mg PO TID PRN 11/16/16 [History] Cyanocobalamin (Vitamin B-12) [Vitamin B-12] 1,000 mcg PO DAILY 11/25/16 [History] Fluconazole [Diflucan] 400 mg PO DAILY 11/25/16 [History] diphenhydrAMINE HCL [Diphenhist] 25 mg PO ASDIRECTED PRN 11/25/16 [History] Dolutegravir Sodium [Tivicay] 50 mg PO DAILY 01/04/17 [History] Ondansetron [Ondansetron ODT] 4 mg PO Q6H PRN 01/04/17 [History] Meloxicam [Mobic] 7.5 mg PO BID 02/14/17 [History] Emtricitabine/Tenofov Alafenam [Descovy 200-25 mg Tablet] 1 each PO DAILY 02/23/17 [History] Loperamide HCl [Anti-Diarrheal] 2 mg PO ASDIRECTED PRN 02/23/17 [History] Hydrocodone/Acetaminophen [Hydrocodone-Acetamin 10-325 mg] 1 tab PO Q6H PRN #20 tablet 05/18/17 [Rx] Past Medical History - Past Health History Medical/Surgical History: Denies Medical/Surgical History HEENT History: Reports: None Respiratory History: Reports: Other (See Below) Other Respiratory History: PCP x 2 with HIV Gastrointestinal History: Reports: Hepatitis, Other (See Below) Other Gastrointestinal History: Hepatitis A as a child 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: Musculoskeletal History: Reports: Back Pain, Chronic Other Musculoskeletal History: leg cramps Neurological History: Reports: Headaches, Chronic Psychiatric History: Reports: Addiction, Anxiety, Depression Other Psychiatric History: hx meth abuse Endocrine/Metabolic History: Reports: Hypothyroidism, Obesity/BMI 30+ Hematologic History: Reports: B12 Deficiency Other Hematologic History: HIV Immunologic History: Reports: AIDS, HIV, Other (See Below) Other Immunologic History: CD4 count, PCP x 2 Dermatologic History: Reports: Other (See Below) Other Dermatologic History: 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 - Infectious Disease History Infectious Disease History: Reports: Hepatitis A, HIV-Human Immunodeficiency Virus, Meningitis - Past Surgical History GI Surgical History: Reports: Cholecystectomy Female Surgical History: Reports: Tubal Ligation Other Neurological Surgeries/Procedures: degenerative disc disease L3-4 Social & Family History - Family History Family Medical History: No Pertinent Family History - Caffeine Use Caffeine Use: Reports: Soda ED ROS GENERAL - Review of Systems Review Of Systems: See Below Free Text/Narrative/Comment: In addition to that documented in the HPI above, the additional ROS was obtained: Constitutional: Denies fevers or chills Eyes: Denies vision changes ENMT: Denies sore throat CV: Denies chest pain Resp: Denies SOB GI: Denies vomiting or diarrhea : Denies painful urination MSK: Denies recent trauma Skin: Denies new rashes Neuro: Denies new numbness or tingling or weakness Endocrine: Denies unexpected weight loss Heme: Denies bleeding disorders ED EXAM,LOWER BACK PAIN/INJURY - Physical Exam Exam: See Below Text/Narrative:: I have reviewed the triage vital signs Const: Well nourished, well developed, appears stated age Eyes: Pupils Equal and reactive to light bilaterally, no conjunctival injection HENT: No signs of trauma or swelling, Neck supple without meningismus CV: Tachycardia, Regular Rhythm, warm, well-perfused extremities RESP: Unlabored respiratory effort GI: soft, non-tender, non-distended, no masses MSK: No gross deformities appreciated Skin: Warm, dry. No rashes Neuro: Alert, nutrition aide II-XII grossly intact. Sensation and motor function of extremities grossly intact. Gait normal. Psych: Appropriate mood and affect. Course - Vital Signs Last Recorded V/S: Last Vital Signs Temp 37.0 C 12/08/20 19:01 Pulse 110 H 12/08/20 19:01 Resp 18 12/08/20 19:01 BP 100/52 L 12/08/20 19:01 Pulse Ox 97 12/08/20 19:01 - Orders/Labs/Meds Meds: Medications Discontinued Medications Generic Name Dose Route Start Last Admin Trade Name Freq PRN Reason Stop Dose Admin Ketorolac Tromethamine 30 mg 12/08/20 19:24 12/08/20 20:05 Ketorolac 15 Mg/Ml Sdv IM 12/08/20 19:25 30 mg ONETIME ONE Administration Methocarbamol 1,000 mg 12/08/20 19:24 12/08/20 20:14 Methocarbamol 500 Mg Tab PO 12/08/20 19:25 1,000 mg ONETIME ONE Administration Ondansetron HCl 4 mg 12/08/20 19:24 12/08/20 20:05 Ondansetron 4 Mg Tab.Dis PO 12/08/20 19:25 4 mg ONETIME ONE Administration Departure - Departure Time of Disposition: 20:26 Disposition: Home, Self-Care 01 Clinical Impression: Lumbar strain - Discharge Information Instructions: Lumbar Strain Referrals: Sudhir Biggs MD [Primary Care Provider] - Forms: ED Department Discharge Sepsis Event Note (ED) - Evaluation Sepsis Screening Result: No Definite Risk - Focused Exam Vital Signs: Vital Signs Temp Pulse Resp BP Pulse Ox 12/08/20 19:01 37.0 C 110 H 18 100/52 L 97 - Assessment/Plan Assessment:: Patient is a 44-year-old female presenting to emergency room with chief complaint of low back pain. Patient has chronic low back pain. No significant red flags concerning for cauda equina syndrome or anything that would require emergent imaging at this time. Patient demonstrated initial blood pressure of 152 but on repeat examination for pressure improved to 113/71. Patient was given Toradol and Robaxin with significant improvement in pain. Patient was initially tachycardic however this improved as well likely this is secondary to pain. No evidence of fever. Patient feels better and wished to go home. Patient understands importance of following up with primary care tomorrow morning for refill of her HIV medications. Return precautions discussed as usual. Patient agrees with plan of care.
== END 2020-12-08 20:47 | disposition home or self-care (01) ==
LOC: JD.ED 18:40
DX: S39.012A Strain of muscle, fascia and tendon of lower back, initial encounter (principal); E03.9 Hypothyroidism, unspecified; E66.9 Obesity, unspecified; Z68.37 Body mass index [BMI] 37.0-37.9, adult; Z88.0 Allergy status to penicillin; Z79.899 Other long term (current) drug therapy; X58.XXXA Exposure to other specified factors, initial encounter
CPT/HCPCS: 96372; 99283; A9270; J1885

== ENCOUNTER 2020-12-29 14:33 | Emergency (ER) | payer MEDICAID | END 2020-12-29 15:11 | disposition left against medical advice (07) | LOC: JD.ED 14:33 | DX: Z53.21 Procedure and treatment not carried out due to patient leaving prior to being seen by health care provider (principal) ==